=== PATIENT | female | born 1985 | race Caucasian/White ===

== ENCOUNTER 2017-08-20 21:18 | Inpatient (IN) | payer MEDICAID ==
[~2017-08-20] VITALS: Ht 170.2 cm; Wt 68.0 kg
[~2017-08-20 21:18] MED LIST: DIPH25CA83 PO; OXYC-150 PO; VALA10002 PO
[2017-08-20] MEDS ORDERED: acetaminophen 325mg tablet PO ONE (21:30)
[2017-08-20] MEDS ORDERED: acetaminophen 325mg tablet PO STA (21:48)
[2017-08-20] MEDS ORDERED: normal saline 1000ML IV soln IV ONE (21:50)
[2017-08-20] MEDS ORDERED: CefTRIAXone 2gm/D5W 50ml ADVTG 50 ML IV ONE (21:50)
[2017-08-20 22:00] LABS: CLARITY,URINE Cloudy (Clear); COLOR,URINE Yellow (Yellow); GLUCOSE, URINE Negative (Neg); KETONES,URINE Negative (Neg); LEUKOCYTE ESTERASE ,URINE Large (Neg); NITRITES, URINE Positive (Neg); OCCULT BLOOD,URINE Small (Neg); PH,URINE 6.5 (4.8-8.0); PROTEIN,URINE 30 mg/dl (Neg)
[2017-08-20 22:01] LABS: URINE HCG NEGATIVE (NEG)
[2017-08-20 22:08] LABS: BASOPHILS % (AUTO) 0 % (0-1); EOSINOPHILS % (AUTO) 0.2 % (0-6); HEMATOCRIT 45.7 % (35.0-45.0); HEMOGLOBIN 15.1 g/dl (12.0-16.0); LYMPHOCYTES # (AUTO) 1.5 X10'3 (1.1-4.8); LYMPHOCYTES % (AUTO) 10.8 % (21-51); MEAN CORPUSCULAR HEMOGLOBIN 28.8 PG (27.0-31.0); MEAN CORPUSCULAR HGB CONC 33.1 % (33.0-36.5); MEAN CORPUSCULAR VOLUME 87.1 FL (78-98); MEAN PLATELET VOLUME 9.4 FL (7.4-10.4); MONOCYTES # (AUTO) 0.8 X10'3 (0-0.9); MONOCYTES % (AUTO) 5.5 % (2-12); NEUTROPHILS % (AUTO) 83.5 % (42-75); PLATELET COUNT 203 X10'3 (140-440); RED BLOOD COUNT 5.25 X10'6 (4.20-5.60); RED CELL DISTRIBUTION WIDTH 16.9 % (11.5-14.5); WHITE BLOOD COUNT 14.3 X10'3 (4.5-11.0)
[2017-08-20] MEDS ORDERED: ketorolac trometh. 30mg/ml inj. IV ONE (22:10)
[2017-08-20 22:14] LABS: UA COLLECTION TYPE CLN CATCH MIDSTREAM
[2017-08-20 22:20] LABS: INR 0.9 INR; PARTIAL THROMBOPLASTIN TIME 27 SECONDS (22-32); PROTHROMBIN TIME 9.8 SECONDS (9.0-12.0)
[2017-08-20 22:23] LABS: ALANINE AMINOTRANSFERASE 917 U/L (12-78); ALBUMIN 3.9 G/DL (3.4-5.0); ALBUMIN/GLOBULIN RATIO 0.9 (1.1-1.5); ALKALINE PHOSPHATASE 252 IU/L (46-116); ANION GAP 7 (8-16); ASPARTATE AMINO TRANSFERASE 38 U/L (10-37); BILIRUBIN,TOTAL 0.7 MG/DL (0.1-1.0); BLOOD UREA NITROGEN 7 MG/DL (7-18); BUN/CREATININE RATIO 8.6 (6.6-38.0); CALCIUM 8.9 MG/DL (8.5-10.1); CHLORIDE 99 MMOL/L (99-107); CREATININE 0.81 MG/DL (0.40-0.90); GLUCOSE 104 MG/DL (70-104); POTASSIUM 3.7 MMOL/L (3.5-5.1); SODIUM 135 MMOL/L (135-145); TOTAL CARBON DIOXIDE 28.6 MMOL/L (24-32); TOTAL PROTEIN 8.1 G/DL (6.4-8.2); eGFR 82 ML/MIN
[2017-08-20 22:23] LABS: BACTERIA,URINE 2+ /HPF (Neg); SQUAMOUS EPITHELIAL CELL,UR MODERATE /LPF (FEW); WBC,URINE TNTC /HPF (0-4)
[2017-08-20 22:24] LABS: MUCUS STRANDS NONE SEEN /LPF (Neg)
[2017-08-21] MEDS ORDERED: NO HOME MEDS (00:35)
[2017-08-21] MEDS ORDERED: acetaminophen 325mg tablet PO PRN ×2 (02:40)
[2017-08-21] MEDS ORDERED: magnesium hydroxide 30ml (MOM) UD suspension PO PRN (02:40)
[2017-08-21] MEDS ORDERED: mag hydrox/Alum hydrox/simeth 30ml oral suspension PO PRN (02:40)
[2017-08-21] MEDS ORDERED: ondansetron/PF 4mg/2ml inj IV PRN (02:40)
[2017-08-21] MEDS: normal saline 1000ml 1,000 ML IV SCH ×2 (04:11→13:22)
[2017-08-21] MEDS ORDERED: lactobacillus rhamnosus 10,000 MMU CELLS/CAPSULE PO SCH (07:30)
[2017-08-21] MEDS ORDERED: LACTOBACILLUS RHAMNOSUS GG 15 billion unit sprinkle caps PO ONE (07:40)
[2017-08-21 13:47] VITALS: BP 121/81
[2017-08-21 14:07] VITALS: BP 121/81
[2017-08-21] MEDS ORDERED: cyclobenzaprine 10mg tablet PO PRN (14:40)
[2017-08-21] MEDS ORDERED: LORazepam 2 mg/ml vial IV PRN (14:40)
[2017-08-21] MEDS ORDERED: HYDROcodone/acetaminophen 5mg/325mg tablet PO PRN (14:40)
[2017-08-21] MEDS ORDERED: ketorolac trometh. 30mg/ml inj. IM PRN (14:40)
[2017-08-21] MEDS ORDERED: metoprolol tartrate 1mg/ml inj IV ONE (14:45)
[2017-08-21] MEDS ORDERED: metoprolol tartrate 12.5mg (1/2 tablet) PO ONE (14:49)
[2017-08-21] MEDS: acetaminophen 325mg tablet PO PRN (15:10)
[2017-08-21 16:24] LABS: HIV ANTIBODY 1&2 RAPID NON-REACTIVE (Neg)
[2017-08-21] MEDS: docusate sodium 100mg/10ml UD cup PO SCH (19:14)
[2017-08-21] MEDS: ketorolac trometh. 30mg/ml inj. IV SCH (19:14)
[2017-08-21 19:35] VITALS: BP 117/81
[2017-08-21 20:17] LABS: URINE AMPHETAMINE SCREEN POSITIVE (Neg); URINE BARBITUATE SCREEN NEGATIVE (Neg); URINE BENZODIAZEPINES SCREEN NEGATIVE (Neg); URINE CANNABINOID SCREEN POSITIVE (Neg); URINE COCAINE SCREEN NEGATIVE (Neg); URINE METHADONE SCREEN NEGATIVE (Neg); URINE OPIATE SCREEN POSITIVE (Neg); URINE PHENCYCLIDINE SCREEN NEGATIVE (Neg)
[2017-08-21] MEDS: Melatonin 3mg tablet PO SCH (20:38)
[2017-08-21] MEDS ORDERED: CefTRIAXone 2gm/D5W 50ml ADVTG 50 ML IV SCH (21:00)
[2017-08-22] VITALS: BP 112/66
[2017-08-22] MEDS: normal saline 1000ml 1,000 ML IV SCH ×3 (00:06→21:58)
[2017-08-22] MEDS: ketorolac trometh. 30mg/ml inj. IV SCH ×2 (01:48→08:00)
[2017-08-22 05:15] LABS: BASOPHILS # (AUTO) 0.1 X10'3 (0-0.2); BASOPHILS % (AUTO) 1.1 % (0-1); EOSINOPHILS # (AUTO) 0.3 X10'3 (0-0.9); EOSINOPHILS % (AUTO) 2.4 % (0-6); HEMATOCRIT 37.4 % (35.0-45.0); HEMOGLOBIN 12.3 g/dl (12.0-16.0); LYMPHOCYTES # (AUTO) 1.3 X10'3 (1.1-4.8); MEAN CORPUSCULAR HEMOGLOBIN 28.9 PG (27.0-31.0); MEAN CORPUSCULAR HGB CONC 32.9 % (33.0-36.5); MEAN CORPUSCULAR VOLUME 87.6 FL (78-98); MEAN PLATELET VOLUME 9.8 FL (7.4-10.4); MONOCYTES # (AUTO) 0.9 X10'3 (0-0.9); MONOCYTES % (AUTO) 8.9 % (2-12); NEUTROPHILS % (AUTO) 75.6 % (42-75); PLATELET COUNT 173 X10'3 (140-440); RED BLOOD COUNT 4.28 X10'6 (4.20-5.60); RED CELL DISTRIBUTION WIDTH 17.1 % (11.5-14.5); WHITE BLOOD COUNT 10.6 X10'3 (4.5-11.0)
[2017-08-22 05:49] LABS: ALANINE AMINOTRANSFERASE 421 U/L (12-78); ALBUMIN 2.5 G/DL (3.4-5.0); ALBUMIN/GLOBULIN RATIO 0.6 (1.1-1.5); ALKALINE PHOSPHATASE 173 IU/L (46-116); ANION GAP 7 (8-16); ASPARTATE AMINO TRANSFERASE 18 U/L (10-37); BILIRUBIN,TOTAL 0.4 MG/DL (0.1-1.0); BLOOD UREA NITROGEN 7 MG/DL (7-18); BUN/CREATININE RATIO 9.6 (6.6-38.0); CALCIUM 8.1 MG/DL (8.5-10.1); CHLORIDE 106 MMOL/L (99-107); CREATININE 0.73 MG/DL (0.40-0.90); GLUCOSE 158 MG/DL (70-104); POTASSIUM 3.8 MMOL/L (3.5-5.1); SODIUM 137 MMOL/L (135-145); TOTAL CARBON DIOXIDE 24.1 MMOL/L (24-32); TOTAL PROTEIN 6.4 G/DL (6.4-8.2); eGFR > 90 ML/MIN
[2017-08-22 07:06] VITALS: BP 119/79
[2017-08-22] MEDS: docusate sodium 100mg/10ml UD cup PO SCH ×2 (08:00→19:00)
[2017-08-22] MEDS: LACTOBACILLUS RHAMNOSUS GG 15 billion unit sprinkle caps PO SCH (08:01)
[2017-08-22 11:25] VITALS: BP 113/70
[2017-08-22 19:00] VITALS: BP 117/69
[2017-08-22] MEDS: ketorolac trometh. 30mg/ml inj. IV PRN (19:03)
[2017-08-22] MEDS ORDERED: CefTRIAXone 2gm/NS 100ml IVPB 100 ML IV SCH (20:28)
[2017-08-22] MEDS: Melatonin 3mg tablet PO SCH (21:58)
[2017-08-22] MEDS: acetaminophen 325mg tablet PO PRN (23:43)
[2017-08-23] VITALS: BP 106/66
[2017-08-23] MEDS: ketorolac trometh. 30mg/ml inj. IV PRN (05:23)
[2017-08-23 05:41] LABS: BASOPHILS # (AUTO) 0.1 X10'3 (0-0.2); BASOPHILS % (AUTO) 0.7 % (0-1); EOSINOPHILS # (AUTO) 0.4 X10'3 (0-0.9); EOSINOPHILS % (AUTO) 5.2 % (0-6); HEMATOCRIT 36.8 % (35.0-45.0); HEMOGLOBIN 12.2 g/dl (12.0-16.0); LYMPHOCYTES # (AUTO) 2.4 X10'3 (1.1-4.8); LYMPHOCYTES % (AUTO) 34.2 % (21-51); MEAN CORPUSCULAR HEMOGLOBIN 29.2 PG (27.0-31.0); MEAN CORPUSCULAR HGB CONC 33.2 % (33.0-36.5); MEAN CORPUSCULAR VOLUME 87.8 FL (78-98); MEAN PLATELET VOLUME 9.8 FL (7.4-10.4); MONOCYTES # (AUTO) 0.8 X10'3 (0-0.9); MONOCYTES % (AUTO) 11.6 % (2-12); NEUTROPHILS # (AUTO) 3.4 X10'3 (1.8-7.7); NEUTROPHILS % (AUTO) 48.3 % (42-75); PLATELET COUNT 227 X10'3 (140-440); RED BLOOD COUNT 4.19 X10'6 (4.20-5.60); RED CELL DISTRIBUTION WIDTH 17.4 % (11.5-14.5)
[2017-08-23 05:51] LABS: ALBUMIN 2.5 G/DL (3.4-5.0); ANION GAP 7 (8-16); BLOOD UREA NITROGEN 4 MG/DL (7-18); BUN/CREATININE RATIO 5.6 (6.6-38.0); CALCIUM 8.1 MG/DL (8.5-10.1); CHLORIDE 108 MMOL/L (99-107); CREATININE 0.72 MG/DL (0.40-0.90); GLUCOSE 90 MG/DL (70-104); POTASSIUM 3.7 MMOL/L (3.5-5.1); SODIUM 142 MMOL/L (135-145); TOTAL CARBON DIOXIDE 26.6 MMOL/L (24-32); eGFR > 90 ML/MIN
[2017-08-23 07:00] VITALS: BP 128/89
[2017-08-23] MEDS: normal saline 1000ml 1,000 ML IV SCH (07:40)
[2017-08-23] MEDS: LACTOBACILLUS RHAMNOSUS GG 15 billion unit sprinkle caps PO SCH (07:40)
[2017-08-23] MEDS: docusate sodium 100mg/10ml UD cup PO SCH (08:00)
[2017-08-23] MEDS ORDERED: LEVO750T21 PO (10:19)
[2017-08-23] MEDS ORDERED: CYCL-1 PO (10:19)
[2017-08-23] MEDS ORDERED: TRAM50TA2 PO (10:19)
[2017-08-23 11:35] VITALS: BP 114/59
[2017-08-24 15:15] LABS: HBSAG SCREEN Negative (Negative); HEP A AB, IGM Negative (Negative); HEP B CORE AB, IGM Negative (Negative); HEPATITIS C ANTIBODY >11.0 s/co ratio (0.0-0.9)
== END 2017-08-23 12:57 | disposition home or self-care (01) | DRG 720 ==
LOC: ER 21:19 → ED HOLD 08-21 02:40 → SUR 3N 08-21 13:44
PROVIDERS: ADMIT Internal Medicine; ATTEND Family Medicine
DX: A41.9 Sepsis, unspecified organism (principal); K75.9 Inflammatory liver disease, unspecified; N10 Acute pyelonephritis; F15.10 Other stimulant abuse, uncomplicated; G47.00 Insomnia, unspecified; F17.200 Nicotine dependence, unspecified, uncomplicated; B17.9 Acute viral hepatitis, unspecified; F12.90 Cannabis use, unspecified, uncomplicated; Z56.0 Unemployment, unspecified; Z87.442 Personal history of urinary calculi; Z79.899 Other long term (current) drug therapy
CPT/HCPCS: 36415; 71045; 74176; 80048; 80053; 80305; 81001; 81025; 83605; 83735; 84145; 85025; 85610; 85730; 86703; 86705; 86709; 86803; 87040; 87070; 87077; 87088; 87186; 87340; 93005; 96365; 96375; 99285; A4315; A6258; J0696; J1885; J2060; J2270; J7030

== ENCOUNTER 2018-08-16 20:42 | Emergency (ER) | payer MEDICAID ==
[~2018-08-16] VITALS: Ht 167.6 cm; Wt 76.0 kg
[~2018-08-16 20:42] MED LIST changes: +CYCL-1 PO; -DIPH25CA83 PO; +NO HOME MEDS; -OXYC-150 PO; -VALA10002 PO
[2018-08-16 21:06] VITALS: BP 147/95
== END 2018-08-16 22:03 | disposition left against medical advice (07) ==
LOC: ER 20:42
DX: R21 Rash and other nonspecific skin eruption (principal); Z53.21 Procedure and treatment not carried out due to patient leaving prior to being seen by health care provider

== ENCOUNTER 2018-08-25 08:03 | Emergency (ER) | payer MEDICAID ==
[~2018-08-25] VITALS: Ht 167.6 cm; Wt 77.3 kg
[2018-08-25 08:05] VITALS: BP 126/89
== END 2018-08-25 08:27 | disposition home or self-care (01) ==
LOC: ER 08:03
DX: L30.5 Pityriasis alba (principal); F12.90 Cannabis use, unspecified, uncomplicated; F15.90 Other stimulant use, unspecified, uncomplicated; Z56.0 Unemployment, unspecified; Z87.442 Personal history of urinary calculi
CPT/HCPCS: 99281

== ENCOUNTER 2018-10-04 10:33 | Emergency (ER) | payer MEDICAID ==
[~2018-10-04] VITALS: Ht 170.2 cm; Wt 74.0 kg
[2018-10-04 10:36] VITALS: BP 129/93
[2018-10-04] MEDS ORDERED: albuterol 2.5 MG/3 ML nebule NEB ONE (11:00)
[2018-10-04] MEDS ORDERED: METH4TAB81 PO (11:01)
[2018-10-04] MEDS ORDERED: AZIT250T83 PO (11:01)
[2018-10-06] MEDS ORDERED: ALBU6.7H INH (22:47)
[2018-10-06] MEDS ORDERED: DOXY100C43 PO (22:47)
[2018-10-06] MEDS ORDERED: GUAI473S11 PO (22:47)
== END 2018-10-04 11:41 | disposition home or self-care (01) ==
LOC: ER 10:33
DX: J45.909 Unspecified asthma, uncomplicated (principal); F17.200 Nicotine dependence, unspecified, uncomplicated; F12.90 Cannabis use, unspecified, uncomplicated; F15.90 Other stimulant use, unspecified, uncomplicated; Z56.0 Unemployment, unspecified; Z79.899 Other long term (current) drug therapy
CPT/HCPCS: 94640; 94760; 99283

== ENCOUNTER 2018-10-28 00:17 | Emergency (ER) | payer MEDICAID ==
[~2018-10-28] VITALS: Ht 157.5 cm; Wt 77.1 kg
[~2018-10-28 00:17] MED LIST changes: +ALBU6.7H INH; +METH4TAB81 PO
[2018-10-28 00:19] VITALS: BP 160/97
[2018-10-28] MEDS ORDERED: dexamethasone 4mg tablet PO ONE (00:30)
[2018-10-28] MEDS ORDERED: ipratropium/albuterol 3ml nebule NEB ONE (00:30)
--- NOTE | 2018-10-28 00:52 | NUR ---
PT STATES SHE FEELS SO MUCH BETTER AFTER HER NEB. SHE IS JOKING AROUND, HER DARN LAB ATE HER INHALER!
[2018-10-28] MEDS ORDERED: ALBU18HF2 INH (01:04)
[2018-10-28] MEDS ORDERED: PRED20TA PO (01:04)
== END 2018-10-28 01:20 | disposition home or self-care (01) ==
LOC: ER 00:17
DX: J20.9 Acute bronchitis, unspecified (principal); J22 Unspecified acute lower respiratory infection; J45.909 Unspecified asthma, uncomplicated; F12.90 Cannabis use, unspecified, uncomplicated; F15.90 Other stimulant use, unspecified, uncomplicated; F17.299 Nicotine dependence, other tobacco product, with unspecified nicotine-induced disorders; Z56.0 Unemployment, unspecified; Z87.442 Personal history of urinary calculi; Z79.899 Other long term (current) drug therapy
CPT/HCPCS: 94640; 94760; 99283; 99406; J8540

== ENCOUNTER 2019-01-16 16:24 | Emergency (ER) | payer MEDICAID ==
[~2019-01-16] VITALS: Ht 167.6 cm; Wt 72.0 kg
[~2019-01-16 16:24] MED LIST changes: +ALBU18HF2 INH
[2019-01-16 16:42] VITALS: BP 130/93
[2019-01-16 17:21] LABS: URINE HCG NEGATIVE (NEG)
[2019-01-16 17:36] LABS: CLARITY,URINE SLIGHTLY CLOUDY (Clear); COLOR,URINE YELLOW (Yellow); GLUCOSE, URINE NEGATIVE (Neg); KETONES,URINE NEGATIVE (Neg); LEUKOCYTE ESTERASE ,URINE NEGATIVE (Neg); NITRITES, URINE NEGATIVE (Neg); OCCULT BLOOD,URINE NEGATIVE (Neg); PROTEIN,URINE NEGATIVE (Neg); UROBILINOGEN,URINE 0.2 E.U/dL (0.2-1.0)
[2019-01-16 17:39] LABS: UA COLLECTION TYPE VOIDED
[2019-01-16] MEDS ORDERED: penicillin G benzathine 1.2 million unit/2ml syringe IM ONE (17:40)
[2019-01-16 17:41] LABS: MUCUS STRANDS MANY /LPF (Neg); SQUAMOUS EPITHELIAL CELL,UR MANY /LPF (FEW)
[2019-01-16 17:44] LABS: BACTERIA,URINE 1+ /HPF (Neg); RBC,URINE 0-2 /HPF (0-2); WBC,URINE 0-4 /HPF (0-4)
== END 2019-01-16 18:05 | disposition home or self-care (01) ==
LOC: ER 16:24
DX: Z20.2 Contact with and (suspected) exposure to infections with a predominantly sexual mode of transmission (principal); J45.909 Unspecified asthma, uncomplicated; F12.90 Cannabis use, unspecified, uncomplicated; F15.90 Other stimulant use, unspecified, uncomplicated; F11.90 Opioid use, unspecified, uncomplicated; Z79.899 Other long term (current) drug therapy; Z56.0 Unemployment, unspecified
CPT/HCPCS: 81001; 81025; 96372; 99283; J0561

== ENCOUNTER 2019-05-20 21:14 | Emergency (ER) | payer MEDICAID, OTHER ==
[~2019-05-20] VITALS: Ht 167.6 cm; Wt 71.0 kg
[~2019-05-20 21:14] MED LIST changes: -ALBU6.7H INH; +ALBU6.7H9 INH
[2019-05-20] MEDS ORDERED: ipratropium/albuterol 3ml nebule NEB ONE (21:30)
[2019-05-20] MEDS ORDERED: ALBU18HF2 INH (22:01)
[2019-05-20] MEDS ORDERED: BECL7.3A INH (22:01)
[2019-05-20] MEDS ORDERED: AZIT250T PO (22:01)
[2019-05-20 22:15] VITALS: BP 140/76
== END 2019-05-20 22:16 | disposition home or self-care (01) ==
LOC: ER 21:15
DX: J45.901 Unspecified asthma with (acute) exacerbation (principal); F12.90 Cannabis use, unspecified, uncomplicated; F15.90 Other stimulant use, unspecified, uncomplicated; F11.90 Opioid use, unspecified, uncomplicated; Z87.442 Personal history of urinary calculi; Z56.0 Unemployment, unspecified; Z79.899 Other long term (current) drug therapy
CPT/HCPCS: 93005; 94640; 94760; 99283

== ENCOUNTER 2019-06-23 08:07 | Emergency (ER) | payer MEDICAID, OTHER ==
[~2019-06-23] VITALS: Ht 167.6 cm; Wt 70.0 kg
[~2019-06-23 08:07] MED LIST changes: +AZIT250T PO; +BECL7.3A INH
[2019-06-23] MEDS ORDERED: ipratropium/albuterol 3ml nebule NEB ONE (08:40)
[2019-06-23] MEDS ORDERED: DOXY100C43 PO (09:21)
[2019-06-23] MEDS ORDERED: PRED50TA PO (09:21)
[2019-06-23 09:37] VITALS: BP 103/70
== END 2019-06-23 09:41 | disposition home or self-care (01) ==
LOC: ER 08:07
DX: J45.901 Unspecified asthma with (acute) exacerbation (principal); F17.299 Nicotine dependence, other tobacco product, with unspecified nicotine-induced disorders; F12.90 Cannabis use, unspecified, uncomplicated; F15.90 Other stimulant use, unspecified, uncomplicated; F11.90 Opioid use, unspecified, uncomplicated; Z56.0 Unemployment, unspecified; Z87.442 Personal history of urinary calculi; Z79.899 Other long term (current) drug therapy
CPT/HCPCS: 71046; 94640; 94760; 99283; 99406

== ENCOUNTER 2019-06-29 15:52 | Emergency (ER) | payer MEDICAID, OTHER ==
[~2019-06-29] VITALS: Ht 167.6 cm; Wt 70.2 kg
[~2019-06-29 15:52] MED LIST changes: +DOXY100C43 PO; +PRED50TA PO
[2019-06-29 15:53] VITALS: BP 146/99
== END 2019-06-29 17:21 | disposition home or self-care (01) ==
LOC: ER 15:52
DX: S92.352A Displaced fracture of fifth metatarsal bone, left foot, initial encounter for closed fracture (principal); J45.909 Unspecified asthma, uncomplicated; F17.200 Nicotine dependence, unspecified, uncomplicated; F12.90 Cannabis use, unspecified, uncomplicated; F15.90 Other stimulant use, unspecified, uncomplicated; F11.90 Opioid use, unspecified, uncomplicated; Z56.0 Unemployment, unspecified; Z87.442 Personal history of urinary calculi; Z79.899 Other long term (current) drug therapy; W10.9XXA Fall (on) (from) unspecified stairs and steps, initial encounter; Y93.01 Activity, walking, marching and hiking; Y92.89 Other specified places as the place of occurrence of the external cause; Y99.9 Unspecified external cause status
CPT/HCPCS: 73630; 99284

== ENCOUNTER 2019-08-28 12:34 | Emergency (ER) | payer MEDICAID, OTHER ==
[~2019-08-28] VITALS: Ht 167.6 cm; Wt 67.7 kg
[~2019-08-28 12:34] MED LIST changes: -DOXY100C43 PO
[2019-08-28] MEDS ORDERED: ipratropium/albuterol 3ml nebule NEB ONE (12:45)
[2019-08-28] MEDS ORDERED: predniSONE 20 mg tablet PO ONE (12:45)
[2019-08-28] MEDS ORDERED: methylPREDNISolone sod succ 125mg/2ml vial IV ONE (12:45)
[2019-08-28] MEDS ORDERED: albuterol 2.5 MG/3 ML nebule CONTNEB PRN (12:45)
[2019-08-28] MEDS ORDERED: epiNEPHrine 1 mg/ml inj IM STA (12:47)
[2019-08-28] MEDS ORDERED: methylPREDNISolone sod succ 125mg/2ml vial IM ONE (12:50)
--- NOTE | 2019-08-28 12:59 | NUR ---
pt given epi sq and solumed im. 2nd page placed to RT.
[2019-08-28 13:09] LABS: BASOPHILS # (AUTO) 0.1 X10'3 (0-0.2); BASOPHILS % (AUTO) 1.1 % (0-1); EOSINOPHILS # (AUTO) 1.5 X10'3 (0-0.9); HEMATOCRIT 44.5 % (35.0-45.0); LYMPHOCYTES # (AUTO) 3.2 X10'3 (1.1-4.8); LYMPHOCYTES % (AUTO) 35.9 % (21-51); MEAN CORPUSCULAR HEMOGLOBIN 28.2 PG (27.0-31.0); MEAN CORPUSCULAR HGB CONC 33.6 g/dL (33.0-36.5); MEAN CORPUSCULAR VOLUME 83.9 FL (78-98); MEAN PLATELET VOLUME 8.4 FL (7.4-10.4); MONOCYTES # (AUTO) 0.5 X10'3 (0-0.9); NEUTROPHILS # (AUTO) 3.6 X10'3 (1.8-7.7); PLATELET COUNT 276 X10'3 (140-440); RED CELL DISTRIBUTION WIDTH 14.7 % (11.5-14.5)
--- NOTE | 2019-08-28 13:17 | NUR ---
RT HERE TO GIVE PT CONT NEB. RT BUSY WITH CRITICAL PTS IN ICU WHEN PAGED FIRST TIME, CALLED ER AND INFORMED THEM WE WOULD BE DOWN SOON WE WERE DONE.. RECEIVED ANOTHER PAGE AGAIN. SPOKE TO OPERATIONS INTELLIGENCE SUPERINTENDENT VIVI AND MADE HER AWARE OF SITUATION. ALSO SPOKE TO DR GARDUNO.. PT CURRENTLY ON CONT NEB. HR 95, SPO2 100%, RR 22.
[2019-08-28 13:26] LABS: ALANINE AMINOTRANSFERASE 17 U/L (12-78); ALBUMIN 3.7 G/DL (3.4-5.0); ALBUMIN/GLOBULIN RATIO 1.1 (1.1-1.5); ALKALINE PHOSPHATASE 78 IU/L (46-116); ANION GAP 7 (8-16); ASPARTATE AMINO TRANSFERASE 8 U/L (10-37); BILIRUBIN,TOTAL 0.3 MG/DL (0.1-1.0); BLOOD UREA NITROGEN 11 MG/DL (7-18); BUN/CREATININE RATIO 13.6 (6.6-38.0); CALCIUM 8.5 MG/DL (8.5-10.1); CHLORIDE 105 MMOL/L (99-107); CREATININE 0.81 MG/DL (0.40-0.90); GLUCOSE 93 MG/DL (70-104); POTASSIUM 4.4 MMOL/L (3.5-5.1); SODIUM 141 MMOL/L (135-145); TOTAL CARBON DIOXIDE 29.2 MMOL/L (24-32); TOTAL PROTEIN 7.1 G/DL (6.4-8.2); eGFR 81 ML/MIN
[2019-08-28] MEDS ORDERED: PRED20TA PO (14:12)
[2019-08-28] MEDS ORDERED: ALBU8.5H8 INH (14:12)
[2019-08-28 14:18] VITALS: BP 124/88
== END 2019-08-28 14:20 | disposition home or self-care (01) ==
LOC: ER 12:35
DX: J45.901 Unspecified asthma with (acute) exacerbation (principal); F17.200 Nicotine dependence, unspecified, uncomplicated; F15.90 Other stimulant use, unspecified, uncomplicated; F11.90 Opioid use, unspecified, uncomplicated; F12.90 Cannabis use, unspecified, uncomplicated; Z56.0 Unemployment, unspecified; Z79.899 Other long term (current) drug therapy
CPT/HCPCS: 36415; 71045; 80053; 85025; 94644; 96372; 99285; J0171; J2930; 94760

== ENCOUNTER 2019-09-14 16:06 | Inpatient (IN) | payer MEDICAID ==
[~2019-09-14] VITALS: Ht 167.6 cm; Wt 68.0 kg
--- NOTE | 2019-09-14 06:15 | NUR ---
Received report from PRIYANK Woo.
[~2019-09-14 16:06] MED LIST changes: +ALBU8.5H8 INH
[2019-09-14] MEDS ORDERED: diphenhydrAMINE 50 mg/ml inj IM ONE (16:20)
[2019-09-14] MEDS ORDERED: morphine 4 MG/ML inj SYRINge IM ONE (16:20)
[2019-09-14] MEDS ORDERED: LORazepam 1 MG tablet PO ONE (16:30)
[2019-09-14] MEDS ORDERED: fentaNYL/PF 50MCG/1 ML 2ML syringe IV ONE ×2 (16:35→18:55)
[2019-09-14] MEDS ORDERED: ketamine 10mg/ml 20ml inj IV ONE (17:10)
[2019-09-14] MEDS ORDERED: ketamine 50 mg/ml 10ml vial IV ONE (17:15)
[2019-09-14] MEDS ORDERED: KETAMINE IV ONE (17:31)
[2019-09-14] MEDS ORDERED: NORMAL SALINE IV ONE (17:31)
--- NOTE | 2019-09-14 17:50 | NUR ---
PT. IS TYPING ON HER CELL PHONE SHOWING NO SIGN OR INDICATION THAT SHE IS IN PAIN. I TALKED TO TOO RAJAN WHO STATED WE COULD HOLD THE KETAMINE DRIP.
--- NOTE | 2019-09-14 18:10 | NUR ---
PT. REFUSED TO GO TO CT. WHEN THEY CAME INTO THE ROOM. PT. STATED " I AM NOT GOING UNLESS I GET PAIN MEDS THAT KNOCKS ME OUT" INFORMED. NEW ORDER TO GIVE THE KETAMIE DRIP. NURSE NETO INFORMED
--- NOTE | 2019-09-14 19:32 | NUR ---
Pt was medicated for pain and was able to go out to CT for scan. Pt tolerated well.
--- NOTE | 2019-09-14 20:00 | NUR ---
Pt unable to tolerate placement of knee immobilizer.
[2019-09-14] MEDS ORDERED: CLIN300C71 PO (21:28)
[2019-09-14] MEDS ORDERED: BUPR1FIL3 PO (21:28)
[2019-09-14] MEDS ORDERED: potassium CL 10mEq/100ml bag 100 ML IV PRN ×2 (22:40)
[2019-09-14] MEDS ORDERED: potassium Cl 20 mEq SR tablet PO PRN ×2 (22:40)
[2019-09-14] MEDS ORDERED: acetaminophen 325mg tablet PO PRN (22:40)
[2019-09-14] MEDS ORDERED: ondansetron/PF 4mg/2ml inj IV PRN (22:40)
[2019-09-14] MEDS ORDERED: magnesium Cl slow-release 64mg tablet PO PRN (22:40)
[2019-09-14] MEDS ORDERED: magnesium 2GM in 50ml NS 50 ML IV PRN (22:40)
[2019-09-14] MEDS ORDERED: magnesium 4gm in 100ml NS 100 ML IV PRN (22:40)
[2019-09-14 23:25] VITALS: BP 120/85
[2019-09-14] MEDS: morphine 2 MG/ML inj. syringe IV PRN (23:30)
[2019-09-14] MEDS: normal saline 1000ml 1,000 ML IV SCH (23:32)
[2019-09-14] MEDS ORDERED: ALBU6.7H9 INH (23:34)
[2019-09-15] VITALS (10 sets, daily range): BP systolic 118–168; BP diastolic 72–90
[2019-09-15] MEDS ORDERED: HYDROmorphone 1 mg/ml syringe IV ONE (00:25)
[2019-09-15] MEDS: HYDROcodone/acetaminophen 5mg/325mg tablet PO PRN ×4 (02:08→19:34)
[2019-09-15] MEDS: morphine 2 MG/ML inj. syringe IV PRN ×2 (03:26→08:12)
--- NOTE | 2019-09-15 06:00 | NUR ---
Patient in room ORTHO 4021. I have received report from RAIN YOST and had the opportunity to ask questions and assume patient care.
--- NOTE | 2019-09-15 06:06 | NUR ---
Patient report given, questions answered and plan of care reviewed with PRIYANK Mijares.
[2019-09-15 06:17] LABS: BASOPHILS # (AUTO) 0.1 X10'3 (0-0.2); BASOPHILS % (AUTO) 0.6 % (0-1); EOSINOPHILS # (AUTO) 0.3 X10'3 (0-0.9); EOSINOPHILS % (AUTO) 2.5 % (0-6); HEMATOCRIT 37.2 % (35.0-45.0); HEMOGLOBIN 12.4 g/dl (12.0-16.0); LYMPHOCYTES # (AUTO) 2.5 X10'3 (1.1-4.8); LYMPHOCYTES % (AUTO) 22.5 % (21-51); MEAN CORPUSCULAR HEMOGLOBIN 28.1 PG (27.0-31.0); MEAN CORPUSCULAR HGB CONC 33.4 g/dL (33.0-36.5); MEAN CORPUSCULAR VOLUME 84.1 FL (78-98); MEAN PLATELET VOLUME 8.4 FL (7.4-10.4); MONOCYTES % (AUTO) 8.6 % (2-12); NEUTROPHILS # (AUTO) 7.3 X10'3 (1.8-7.7); NEUTROPHILS % (AUTO) 65.8 % (42-75); PLATELET COUNT 223 X10'3 (140-440); RED BLOOD COUNT 4.42 X10'6 (4.20-5.60); WHITE BLOOD COUNT 11.1 X10'3 (4.5-11.0)
[2019-09-15 06:40] LABS: ALBUMIN 3.6 G/DL (3.4-5.0); ANION GAP 6 (8-16); BLOOD UREA NITROGEN 11 MG/DL (7-18); BUN/CREATININE RATIO 15.7 (6.6-38.0); CALCIUM 8.7 MG/DL (8.5-10.1); CHLORIDE 108 MMOL/L (99-107); GLUCOSE 107 MG/DL (70-104); MAGNESIUM 1.8 MG/DL (1.5-2.4); POTASSIUM 3.8 MMOL/L (3.5-5.1); SODIUM 140 MMOL/L (135-145); TOTAL CARBON DIOXIDE 26.1 MMOL/L (24-32); eGFR > 90 ML/MIN
[2019-09-15] MEDS: K and/or MAG REPLACEMENT MC SCH ×2 (08:00→08:18)
[2019-09-15] MEDS: nicotine 14mg patch - 24hr TD SCH (08:12)
[2019-09-15] MEDS ORDERED: famotidine/PF 10 mg/ml inj IV PRN (08:40)
[2019-09-15] MEDS: HYDROmorphone 1 mg/ml syringe IV PRN ×4 (09:45→22:05)
[2019-09-15] MEDS ORDERED: albuterol 2.5 MG/3 ML nebule NEB PRN (12:05)
[2019-09-15] MEDS ORDERED: ceFAZolin 1GM/D5W- ADD-VANTAGE 50 ML IV ONE (13:00)
--- NOTE | 2019-09-15 15:11 | NUR ---
DOWN TO THE OR, REPORT CALLED PAOLA OSEI RN.
[2019-09-15] MEDS ORDERED: ceFAZolin 1000mg inj ONE (15:43)
[2019-09-15] MEDS ORDERED: diphenhydrAMINE 50 mg/ml inj ONE (15:55)
[2019-09-15] MEDS ORDERED: dexamethasone sod phosphate 4mg/ml inj. ONE (16:06)
[2019-09-15] MEDS ORDERED: albuterol 2.5 MG/3 ML nebule NEB ONE (16:10)
[2019-09-15] MEDS ORDERED: dexamethasone sod phosphate 10mg/ml inj IV STA (16:17)
[2019-09-15] MEDS ORDERED: ringers solution, lacted 1,000 ML IV ONE (16:17)
[2019-09-15] MEDS ORDERED: diphenhydrAMINE 50 mg/ml inj IM ONE (16:20)
--- NOTE | 2019-09-15 16:30 | NUR ---
PT FOUND IN DISTRESS ON SIMPLE MASK. RT CALED FOR BREATHING TREATMENT FOR ADVERSE REACTION TO MEDICATION. NO WHEEZES OR CRACKLES NOTES. NO STRIDOR. PT. TOOK TREATMENT FOR 1 MINUTE BEFORE THEY REFUSED TO CONTINUE. SWELLING OF THE LIPS AND TOUNGE NOTED. PT ON ROOM AIR POST TREAMENT SATURATING IN THE HIGH 90'S. RACEMIC EPINEPHRINE SUGGESTED BUT DECLINED. Addendum: 09/15/19 at 1633 by Maxx Melendez RT Amended: Links added.
--- NOTE | 2019-09-15 17:00 | NUR ---
REPORT CALLED TO ANDREW RN IN ICU. PATIENT BELONGINGS COLLECTED AND TRANSFERRED TO ROOM.
--- NOTE | 2019-09-15 17:30 | NUR ---
Pt arrived from Recovery Room, into 2009. Placed on monitor. IVF running. PT A&O x4. Painful.
--- NOTE | 2019-09-15 18:15 | NUR ---
Patient in room CICU 2009. I have received report from Nancy, and had the opportunity to ask questions and assume patient care.
[2019-09-15] MEDS: diphenhydrAMINE 50 mg/ml inj IV SCH (19:33)
[2019-09-15] MEDS: dexamethasone 4mg/ml inj IV SCH (19:33)
[2019-09-15] MEDS ORDERED: buprenorphine/naloxone 8MG-2MG SUBlingual film SL SCH (20:00)
[2019-09-16] VITALS (26 sets, daily range): BP systolic 93–140; BP diastolic 47–88
[2019-09-16] MEDS: diphenhydrAMINE 50 mg/ml inj IV SCH ×2 (02:06→07:57)
[2019-09-16] MEDS: dexamethasone 4mg/ml inj IV SCH ×2 (02:06→08:00)
[2019-09-16] MEDS: HYDROmorphone 1 mg/ml syringe IV PRN ×3 (03:00→13:05)
[2019-09-16 04:52] LABS: BASOPHILS % (AUTO) 0.2 % (0-1); EOSINOPHILS % (AUTO) 0 % (0-6); HEMATOCRIT 36.7 % (35.0-45.0); HEMOGLOBIN 12.4 g/dl (12.0-16.0); LYMPHOCYTES # (AUTO) 0.5 X10'3 (1.1-4.8); LYMPHOCYTES % (AUTO) 6.8 % (21-51); MEAN CORPUSCULAR HEMOGLOBIN 28.6 PG (27.0-31.0); MEAN CORPUSCULAR HGB CONC 33.7 g/dL (33.0-36.5); MEAN CORPUSCULAR VOLUME 84.9 FL (78-98); MEAN PLATELET VOLUME 8.5 FL (7.4-10.4); MONOCYTES # (AUTO) 0.1 X10'3 (0-0.9); MONOCYTES % (AUTO) 1.6 % (2-12); NEUTROPHILS # (AUTO) 7.2 X10'3 (1.8-7.7); NEUTROPHILS % (AUTO) 91.4 % (42-75); PLATELET COUNT 260 X10'3 (140-440); RED BLOOD COUNT 4.32 X10'6 (4.20-5.60); RED CELL DISTRIBUTION WIDTH 14.9 % (11.5-14.5); WHITE BLOOD COUNT 7.9 X10'3 (4.5-11.0)
[2019-09-16 05:11] LABS: ALBUMIN 3.2 G/DL (3.4-5.0); ANION GAP 5 (8-16); BLOOD UREA NITROGEN 8 MG/DL (7-18); BUN/CREATININE RATIO 12.3 (6.6-38.0); CALCIUM 8.6 MG/DL (8.5-10.1); CHLORIDE 106 MMOL/L (99-107); CREATININE 0.65 MG/DL (0.40-0.90); GLUCOSE 131 MG/DL (70-104); MAGNESIUM 1.6 MG/DL (1.5-2.4); POTASSIUM 4.3 MMOL/L (3.5-5.1); SODIUM 137 MMOL/L (135-145); TOTAL CARBON DIOXIDE 25.9 MMOL/L (24-32); eGFR > 90 ML/MIN
--- NOTE | 2019-09-16 05:52 | NUR ---
Patient is resting well. Pain management is working very well. NPO since midnight. Scheduled for ORIF or left tibia in this afternoon (09/16/19).
--- NOTE | 2019-09-16 06:30 | NUR ---
Problems reprioritized. Patient report given to KarinaRN, questions answered & plan of care reviewed with .
--- NOTE | 2019-09-16 06:56 | NUR ---
Patient in room CICU 2009. I have received report from PRIYANK Jackson and had the opportunity to ask questions and assume patient care.
[2019-09-16] MEDS: nicotine 14mg patch - 24hr TD SCH (07:58)
[2019-09-16] MEDS ORDERED: CefTRIAXone 2gm/D5W 50ml 50 ML IV SCH (08:00)
[2019-09-16] MEDS: K and/or MAG REPLACEMENT MC SCH ×2 (08:49→20:00)
--- NOTE | 2019-09-16 11:45 | NUR ---
Report called to receiving nurse PRIYANK Rios. Transferred via bed with all belongings. Special Issues communicated to receiving nurse.
--- NOTE | 2019-09-16 12:15 | NUR ---
Patient in room ORTHO 4021. I have received report from NIKOLAY YOST and had the opportunity to ask questions and assume patient care.
--- NOTE | 2019-09-16 12:22 | NUR ---
PAGER ID: [phone] MESSAGE: RICKY [phone] RE: TAVO [id number] SHE IS BACK FROM ICU, NOT SURE IF YOU ARE RESUMING CARE.
[2019-09-16] MEDS ORDERED: ceFAZolin 1000mg inj ONE ×2 (15:53→16:35)
[2019-09-16] MEDS ORDERED: cloNIDine hcl/PF 100mcg/ml inj ONE (15:54)
--- NOTE | 2019-09-16 15:54 | NUR ---
DOWN TO THE OR
[2019-09-16] MEDS ORDERED: sevoflurane 250ml liquid IH ONE (15:56)
[2019-09-16] MEDS: ceFAZolin 1GM/D5W- ADD-VANTAGE 50 ML IV SCH ×2 (16:00→23:40)
[2019-09-16] MEDS ORDERED: fentaNYL/PF 50MCG/1 ML 2ML syringe ONE (16:05)
[2019-09-16] MEDS ORDERED: midazolam 2 mg/2 ml injection ONE (16:06)
[2019-09-16] MEDS ORDERED: acetaminophen 1,000mg/100ml IV 100 ML IV ONE (16:35)
[2019-09-16] MEDS ORDERED: ROPIVAcaine 0.5% (5mg/ml) 30ml vial ONE (16:35)
[2019-09-16] MEDS ORDERED: ondansetron/PF 4mg/2ml inj ONE (16:36)
[2019-09-16] MEDS ORDERED: propofol inj 20 ML IV ONE (16:36)
[2019-09-16] MEDS ORDERED: LIDOcaine 1%/PF 5ML 10 MG/ML VIAL ONE (16:36)
[2019-09-16] MEDS ORDERED: LIDOcaine 2% (20mg/ml) 5ml vial ONE (16:36)
[2019-09-16] MEDS ORDERED: dexamethasone sod phosphate 4mg/ml inj. ONE (16:36)
[2019-09-16] MEDS ORDERED: morphine 10mg/ml inj. ONE ×2 (16:46→17:13)
--- NOTE | 2019-09-16 17:30 | NUR ---
Received from OR via ORTHO BED WITH NDHORACE , accompanied by Anesthesiologist ROBERT and report given by Anesthesiolgist. PATIENT WITH 20G PIV IN RIGHT AC RUNNING LR AT 100. LEFT KNEE WITH CHRIS UNLOCKED AND DRESSING THAT IS CDI.+ DORSALIS PEDIS. + CAP REFILL TO LEFT FOOT. 10L MASK ON WITH 100% SATURATIONS. Addendum: 09/16/19 at 1742 by Jonas Jean RN, RN Amended: Links added.
[2019-09-16] MEDS ORDERED: ringers solution, lacted 1,000 ML IV SCH (17:34)
[2019-09-16] MEDS ORDERED: ondansetron/PF 4mg/2ml inj IV PRN (17:35)
[2019-09-16] MEDS ORDERED: ketorolac trometh. 30mg/ml inj. IV ONE (17:35)
[2019-09-16] MEDS ORDERED: meperidine/PF 25mg/ml syringe IV PRN ×2 (17:35)
[2019-09-16] MEDS ORDERED: morphine 4 MG/ML inj SYRINge IV PRN (17:35)
[2019-09-16] MEDS ORDERED: proCHLORperazine 10 MG/2 ml inj IV PRN (17:35)
[2019-09-16] MEDS ORDERED: meperidine/PF 25mg/ml syringe ONE (17:36)
[2019-09-16] MEDS: morphine 4 MG/ML inj SYRINge IV PRN ×2 (17:50→18:07)
[2019-09-16] MEDS: meperidine/PF 25mg/ml syringe IV PRN ×2 (17:59→18:06)
--- NOTE | 2019-09-16 18:10 | NUR ---
ALL CRITERIA FOR TRANSFER TO THE FLOOR HAS BEEN ACHIEVED. VSS. BED LOW, CALL LIGHT AND VS. SET IN PLACE. RN PRESENT TO ACCEPT CARE. PATIENT RESTING COMFORTABLY IN BED. BELONGINGS SENT WITH PATIENT. DRESSINGS CDI. PRIYANK MONTEZ PRESENT TO ACCEPT CARE. Addendum: 09/16/19 at 1819 by Jonas Valverde - PRIYANK YOST Amended: Links added.
--- NOTE | 2019-09-16 18:20 | NUR ---
ASSUMED CARE, RECEIVED REPORT FROM FARNAZ YOST, POST OP VITALS STARTED, FAMILY AT BEDSIDE. WILL CONTINUE TO MONITOR.
--- NOTE | 2019-09-16 18:21 | NUR ---
Patient in room ORTHO 4021. I have received report from PRIYANK Mijares and had the opportunity to ask questions and assume patient care. Addendum: 09/16/19 at 1838 by Diane Peterson RN Report given to PRIYANK Fontanez from PRIYANK Mijares
--- NOTE | 2019-09-16 18:35 | NUR ---
Problems reprioritized. Patient report given, questions answered & plan of care reviewed with MARGIE YOST.
[2019-09-16] MEDS: normal saline 1000ml 1,000 ML IV SCH (19:13)
[2019-09-17] MEDS: HYDROmorphone 1 mg/ml syringe IV PRN ×2 (00:42→05:28)
[2019-09-17 02:00] VITALS: BP 92/50
[2019-09-17 06:00] VITALS: BP 99/56
--- NOTE | 2019-09-17 06:34 | NUR ---
Problems reprioritized. Patient report given, questions answered & plan of care reviewed with Blanca YOST.
[2019-09-17 06:45] LABS: BASOPHILS % (AUTO) 0.3 % (0-1); EOSINOPHILS % (AUTO) 0 % (0-6); HEMATOCRIT 33.6 % (35.0-45.0); HEMOGLOBIN 11.2 g/dl (12.0-16.0); LYMPHOCYTES # (AUTO) 1.6 X10'3 (1.1-4.8); LYMPHOCYTES % (AUTO) 12.4 % (21-51); MEAN CORPUSCULAR HEMOGLOBIN 28.1 PG (27.0-31.0); MEAN CORPUSCULAR HGB CONC 33.2 g/dL (33.0-36.5); MEAN CORPUSCULAR VOLUME 84.5 FL (78-98); MEAN PLATELET VOLUME 8.5 FL (7.4-10.4); MONOCYTES # (AUTO) 0.7 X10'3 (0-0.9); MONOCYTES % (AUTO) 5.6 % (2-12); NEUTROPHILS # (AUTO) 10.5 X10'3 (1.8-7.7); NEUTROPHILS % (AUTO) 81.7 % (42-75); PLATELET COUNT 272 X10'3 (140-440); RED BLOOD COUNT 3.97 X10'6 (4.20-5.60); RED CELL DISTRIBUTION WIDTH 15.3 % (11.5-14.5); WHITE BLOOD COUNT 12.9 X10'3 (4.5-11.0)
[2019-09-17 07:07] LABS: ALBUMIN 2.9 G/DL (3.4-5.0); ANION GAP 5 (8-16); BLOOD UREA NITROGEN 16 MG/DL (7-18); BUN/CREATININE RATIO 15.8 (6.6-38.0); CALCIUM 8.3 MG/DL (8.5-10.1); CHLORIDE 107 MMOL/L (99-107); CREATININE 1.01 MG/DL (0.40-0.90); GLUCOSE 116 MG/DL (70-104); MAGNESIUM 1.7 MG/DL (1.5-2.4); POTASSIUM 3.7 MMOL/L (3.5-5.1); SODIUM 142 MMOL/L (135-145); TOTAL CARBON DIOXIDE 29.6 MMOL/L (24-32); eGFR 63 ML/MIN
[2019-09-17] MEDS: K and/or MAG REPLACEMENT MC SCH ×2 (08:00→20:00)
[2019-09-17] MEDS: nicotine 14mg patch - 24hr TD SCH (09:41)
[2019-09-17] MEDS: HYDROcodone/acetaminophen 5mg/325mg tablet PO PRN (09:47)
[2019-09-17 10:00] VITALS: BP 97/52
[2019-09-17] MEDS ORDERED: magnesium hydroxide 30ml (MOM) UD suspension PO PRN (12:15)
[2019-09-17] MEDS: HYDROcodone/acetaminophen 10/325mg tab PO SCH ×3 (13:32→21:28)
[2019-09-17 18:00] VITALS: BP 153/76
[2019-09-17] MEDS: docusate sod 100mg capsule PO SCH (20:00)
[2019-09-17] MEDS: buprenorphine/naloxone 8MG-2MG SUBlingual film SL SCH (20:00)
[2019-09-17 22:00] VITALS: BP 113/81
[2019-09-18] MEDS: HYDROcodone/acetaminophen 10/325mg tab PO SCH ×5 (03:09→16:00)
[2019-09-18 06:00] VITALS: BP 105/69
[2019-09-18 06:31] LABS: ALBUMIN 2.6 G/DL (3.4-5.0); ANION GAP 6 (8-16); BLOOD UREA NITROGEN 9 MG/DL (7-18); BUN/CREATININE RATIO 14.1 (6.6-38.0); CALCIUM 8.1 MG/DL (8.5-10.1); CHLORIDE 108 MMOL/L (99-107); CREATININE 0.64 MG/DL (0.40-0.90); GLUCOSE 88 MG/DL (70-104); MAGNESIUM 1.6 MG/DL (1.5-2.4); POTASSIUM 3.5 MMOL/L (3.5-5.1); SODIUM 143 MMOL/L (135-145); eGFR > 90 ML/MIN
[2019-09-18 06:45] LABS: BASOPHILS # (AUTO) 0.1 X10'3 (0-0.2); EOSINOPHILS # (AUTO) 0.1 X10'3 (0-0.9); EOSINOPHILS % (AUTO) 1.9 % (0-6); HEMATOCRIT 30.3 % (35.0-45.0); HEMOGLOBIN 10.3 g/dl (12.0-16.0); LYMPHOCYTES % (AUTO) 44.2 % (21-51); MEAN CORPUSCULAR HEMOGLOBIN 29.1 PG (27.0-31.0); MEAN CORPUSCULAR HGB CONC 34.2 g/dL (33.0-36.5); MEAN CORPUSCULAR VOLUME 85.1 FL (78-98); MEAN PLATELET VOLUME 8.3 FL (7.4-10.4); MONOCYTES # (AUTO) 0.6 X10'3 (0-0.9); MONOCYTES % (AUTO) 9.4 % (2-12); NEUTROPHILS # (AUTO) 2.9 X10'3 (1.8-7.7); NEUTROPHILS % (AUTO) 43.5 % (42-75); PLATELET COUNT 236 X10'3 (140-440); RED BLOOD COUNT 3.56 X10'6 (4.20-5.60); WHITE BLOOD COUNT 6.7 X10'3 (4.5-11.0)
[2019-09-18] MEDS: HYDROmorphone 1 mg/ml syringe IV PRN (06:51)
[2019-09-18] MEDS: docusate sod 100mg capsule PO SCH (08:00)
[2019-09-18] MEDS: K and/or MAG REPLACEMENT MC SCH (08:00)
[2019-09-18] MEDS: buprenorphine/naloxone 8MG-2MG SUBlingual film SL SCH (08:00)
[2019-09-18] MEDS: nicotine 14mg patch - 24hr TD SCH (08:50)
[2019-09-18] MEDS ORDERED: HYDR-4353 PO (09:52)
[2019-09-18] MEDS ORDERED: NICO-631 TD (09:52)
[2019-09-18 09:55] VITALS: BP 189/90
--- NOTE | 2019-09-18 10:15 | NUR ---
called and LM for Dr Casper to call me back re dc instruction for this pt
== END 2019-09-18 15:50 | disposition home or self-care (01) | DRG 313 ==
LOC: ER 16:07 → ED HOLD 22:53 → EDBEDREQ 22:55 → ORTHO 4S 23:25 → CICU 2S 09-15 17:10 → ORTHO 4S 09-16 12:10
PROVIDERS: ADMIT Internal Medicine; ATTEND Internal Medicine
PROC: 0QSH04Z Reposition Left Tibia with Internal Fixation Device, Open Approach (ICD-10-PCS; principal; 2019-09-16 16:00)
DX: S82.142A Displaced bicondylar fracture of left tibia, initial encounter for closed fracture (principal); B19.20 Unspecified viral hepatitis C without hepatic coma; F17.210 Nicotine dependence, cigarettes, uncomplicated; S82.832A Other fracture of upper and lower end of left fibula, initial encounter for closed fracture; J45.909 Unspecified asthma, uncomplicated; T78.3XXA Angioneurotic edema, initial encounter; V00.148A Other scooter (nonmotorized) accident, initial encounter; Y93.89 Activity, other specified; Y92.89 Other specified places as the place of occurrence of the external cause; Y99.8 Other external cause status; Z87.442 Personal history of urinary calculi
CPT/HCPCS: 36415; 73552; 73560; 73564; 73590; 73700; 76000; 80048; 82948; 83735; 85025; 87081; 94640; 94760; 96372; 96374; 97110; 97116; 97162; 97530; 99285; A4215; A4618; A7000; C1713; G0378; J0131; J0690; J0696; J0735; J1100; J1170; J1200; J1885; J2001; J2175; J2250; J2270; J2405; J2704; J2795; J3010; J3370; J7030; L1832

== ENCOUNTER 2019-12-11 08:14 | Emergency (ER) | payer MEDICAID ==
[~2019-12-11] VITALS: Ht 167.6 cm; Wt 72.7 kg
[~2019-12-11 08:14] MED LIST changes: -ALBU18HF2 INH; -ALBU8.5H8 INH; -AZIT250T PO; -BECL7.3A INH; +BUPR1FIL3 PO; -CYCL-1 PO; +HYDR-4353 PO; -METH4TAB81 PO; +NICO-631 TD; -NO HOME MEDS; -PRED50TA PO
[2019-12-11] MEDS ORDERED: methylPREDNISolone sod succ 125mg/2ml vial IV ONE (08:25)
[2019-12-11] MEDS ORDERED: normal saline 1000ML IV soln IVB ONE (08:25)
[2019-12-11] MEDS ORDERED: ipratropium 0.5 MG/2.5ML nebule IH ONE ×2 (08:25→09:40)
[2019-12-11] MEDS: albuterol 2.5 MG/3 ML nebule CONTNEB PRN ×2 (08:31→09:34)
--- NOTE | 2019-12-11 08:58 | NUR ---
pt states she is feeling better. she looks more comfortable.
[2019-12-11] MEDS ORDERED: predniSONE 20 mg tablet PO ONE (09:40)
[2019-12-11] MEDS ORDERED: ALBU18HF2 INH (09:50)
[2019-12-11] MEDS ORDERED: PRED20TA PO (09:50)
[2019-12-11 09:56] VITALS: BP 120/76
== END 2019-12-11 09:56 | disposition home or self-care (01) ==
LOC: ER 08:14
DX: J45.901 Unspecified asthma with (acute) exacerbation (principal); F17.200 Nicotine dependence, unspecified, uncomplicated; F12.90 Cannabis use, unspecified, uncomplicated; F15.90 Other stimulant use, unspecified, uncomplicated; F11.90 Opioid use, unspecified, uncomplicated; Z56.0 Unemployment, unspecified; Z87.442 Personal history of urinary calculi; Z86.19 Personal history of other infectious and parasitic diseases; Z88.1 Allergy status to other antibiotic agents; Z79.899 Other long term (current) drug therapy
CPT/HCPCS: 94644; 99285; J7512; 94640; 94760

== ENCOUNTER 2019-12-21 14:11 | Emergency (ER) | payer MEDICAID ==
[~2019-12-21] VITALS: Ht 167.6 cm; Wt 70.0 kg
[~2019-12-21 14:11] MED LIST changes: +ALBU18HF2 INH; +PRED20TA PO
[2019-12-21 14:40] VITALS: BP 135/94
== END 2019-12-21 15:03 | disposition home or self-care (01) ==
LOC: ER 14:12
DX: F15.10 Other stimulant abuse, uncomplicated (principal); J45.909 Unspecified asthma, uncomplicated; F12.90 Cannabis use, unspecified, uncomplicated; F11.90 Opioid use, unspecified, uncomplicated; Z86.19 Personal history of other infectious and parasitic diseases; Z00.8 Encounter for other general examination; Z56.0 Unemployment, unspecified; Z88.8 Allergy status to other drugs, medicaments and biological substances; Z79.899 Other long term (current) drug therapy
CPT/HCPCS: 99281

== ENCOUNTER 2020-01-02 10:51 | Emergency (ER) | payer MEDICAID ==
[~2020-01-02] VITALS: Ht 167.6 cm; Wt 72.7 kg
[2020-01-02 11:19] VITALS: BP 111/85
== END 2020-01-02 11:45 | disposition home or self-care (01) ==
LOC: ER 10:51
DX: R76.11 Nonspecific reaction to tuberculin skin test without active tuberculosis (principal); J45.909 Unspecified asthma, uncomplicated; F12.90 Cannabis use, unspecified, uncomplicated; F15.90 Other stimulant use, unspecified, uncomplicated; F11.90 Opioid use, unspecified, uncomplicated; Z56.0 Unemployment, unspecified; Z86.19 Personal history of other infectious and parasitic diseases
CPT/HCPCS: 99281

== ENCOUNTER 2020-05-29 04:29 | Emergency (ER) | payer MEDICAID ==
[~2020-05-29] VITALS: Ht 167.6 cm; Wt 75.0 kg
[~2020-05-29 04:29] MED LIST changes: -PRED20TA PO
[2020-05-29] MEDS ORDERED: ipratropium/albuterol 3ml nebule NEB ONE (04:50)
[2020-05-29] MEDS ORDERED: predniSONE 20 mg tablet PO ONE (04:50)
[2020-05-29] MEDS ORDERED: ALBU8.5H8 INH (04:52)
[2020-05-29] MEDS ORDERED: PRED20TA PO (04:52)
[2020-05-29 05:06] VITALS: BP 133/93
== END 2020-05-29 06:00 | disposition home or self-care (01) ==
LOC: ER 04:30
DX: J45.901 Unspecified asthma with (acute) exacerbation (principal); N20.0 Calculus of kidney; B19.20 Unspecified viral hepatitis C without hepatic coma; Z88.1 Allergy status to other antibiotic agents; Z79.899 Other long term (current) drug therapy
CPT/HCPCS: 36415; 87635; 94640; 99283; J7512; 94760

== ENCOUNTER 2023-10-04 09:09 | Emergency (ER) | payer MEDICAID ==
[~2023-10-04] VITALS: Ht 167.6 cm; Wt 80.0 kg
[~2023-10-04 09:09] MED LIST changes: +ALBU6.7H14 INH; -ALBU6.7H9 INH; +ALBU8.5H17 INH
[2023-10-04] MEDS: albuterol 2.5 MG/3 ML nebule NEB ONE (09:20)
[2023-10-04 09:22] VITALS: PULSE 130; RESP 20; O2SAT 97
[2023-10-04 09:27] VITALS: PULSE 123; RESP 20; O2SAT 100
[2023-10-04] MEDS ORDERED: ALB0.5UD NEB (09:54)
[2023-10-04] MEDS ORDERED: METH4TAB81 PO (09:54)
[2023-10-04] MEDS: methylPREDNISolone sod succ 125mg/2ml vial IM ONE (10:04)
[2023-10-04 10:08] VITALS: BP 142/91; PULSE 113; RESP 17; TEMP 97.9; O2SAT 97
== END 2023-10-04 10:10 | disposition home or self-care (01) ==
LOC: ER 09:09
DX: J45.901 Unspecified asthma with (acute) exacerbation (principal); F12.90 Cannabis use, unspecified, uncomplicated; F15.90 Other stimulant use, unspecified, uncomplicated; Z88.1 Allergy status to other antibiotic agents; Z79.899 Other long term (current) drug therapy
CPT/HCPCS: 94640; 96372; 99283; J2930; 94760

== ENCOUNTER 2023-10-14 05:54 | Inpatient (IN) | payer MEDICAID ==
[~2023-10-14] VITALS: Ht 162.6 cm; Wt 86.2 kg
[2023-10-14] VITALS (35 sets, daily range): BP systolic 92–138; BP diastolic 42–83; PULSE 109–145; RESP 17–29; TEMP 97.3; O2SAT 92–100
[~2023-10-14 05:54] MED LIST changes: +ALB0.5UD NEB; +METH4TAB81 PO
[2023-10-14] MEDS: magnesium 2GM in 50ml NS 50 ML IV ONE (06:03)
[2023-10-14] MEDS: ipratropium 0.5 MG/2.5ML nebule IH ONE (06:04)
[2023-10-14] MEDS: albuterol 2.5 MG/3 ML nebule NEB ONE (06:05)
[2023-10-14] MEDS: ipratropium/albuterol 3ml nebule NEB STA (06:05)
[2023-10-14] MEDS: albuterol 2.5 MG/3 ML nebule CONTNEB PRN (06:35)
[2023-10-14 06:53] LABS: ABG BASE EXCESS -17.1 mmol/L (-2.0-2.0); ABG HCO3 17.1 mmol/L (22.0-26.0); ABG OXYGEN SATURATION 95.3 % (94-97); ABG PCO2 (T) 85.6 mmHg (32.0-45.0); ABG PH (T) 6.913 (7.350-7.450); ALLEN'S TEST POSITIVE; FCOHb 0.1 % (0.0-3.9); FHHb 4.7 % (0.0-5.0); FMetHb 0.5 % (0.0-1.5); FO2Hb 94.7 % (94-97); MODE VENT - AC; PATIENT TEMPERATURE 36.4; PEEP 5 cm H2O; RESPIRATORY RATE 20 b/min; TIDAL VOLUME 350 mL; TOTAL HEMOGLOBIN 13.4 G/dl (12.0-16.0)
[2023-10-14] MEDS: normal saline 1000ML IV soln IVB ONE (07:03)
[2023-10-14] MEDS: midazolam 1 mg/ML 2ml injection IV ONE (07:05)
[2023-10-14] MEDS: methylPREDNISolone sod succ 125mg/2ml vial IV STA (07:05)
[2023-10-14] MEDS: ondansetron/PF 4mg/2ml inj IV ONE (07:06)
[2023-10-14] MEDS: LORazepam 2 mg/ml vial ONE (07:06)
[2023-10-14] MEDS: LORazepam 2 mg/ml vial IV STA (07:06)
[2023-10-14] MEDS: midazolam 1 mg/ML 2ml injection ONE (07:07)
[2023-10-14] MEDS: LORazepam 2 mg/ml vial IV ONE (07:07)
[2023-10-14] MEDS: propofol 1000mg/100ml bottle 100 ML IV PRN ×2 (07:09→12:47)
[2023-10-14] MEDS ORDERED: fentaNYL 50mcg/ml PF inj. 2,500 MCG in normal saline 250ml IV soln 200 ML IV SCH (07:25)
[2023-10-14] MEDS ORDERED: morphine 2 MG/ML inj. syringe IV PRN (07:30)
[2023-10-14] MEDS ORDERED: magnesium hydroxide 30ml (MOM) UD suspension PO PRN (07:30)
[2023-10-14] MEDS ORDERED: morphine 4 MG/ML inj SYRINge IV PRN (07:30)
[2023-10-14] MEDS ORDERED: ondansetron/PF 4mg/2ml inj IV PRN (07:30)
[2023-10-14] MEDS ORDERED: acetaminophen 325mg tablet PO PRN ×2 (07:30)
[2023-10-14] MEDS ORDERED: albuterol 2.5 MG/3 ML nebule NEB PRN (07:35)
[2023-10-14] MEDS: methylPREDNISolone sod succ 125mg/2ml vial IV SCH (07:39)
[2023-10-14 07:47] LABS: ABG BASE EXCESS -6.8 mmol/L (-2.0-2.0); ABG HCO3 20.5 mmol/L (22.0-26.0); ABG PCO2 (T) 45.9 mmHg (32.0-45.0); ABG PH (T) 7.264 (7.350-7.450); ABG PO2 (T) 443.5 mmHg (75.0-100.0); ALLEN'S TEST POSITIVE; MODE VENT - AC; PATIENT TEMPERATURE 36.2; PEEP 5 cm H2O; RESPIRATORY RATE 22 b/min; TIDAL VOLUME 20 mL
[2023-10-14] MEDS ORDERED: LIDOcaine 2% (20 mg/ml) 5ml cardiac syringe ONE (08:00)
[2023-10-14] MEDS ORDERED: ipratropium 0.5 MG/2.5ML nebule IH SCH (08:00)
[2023-10-14] MEDS ORDERED: etomidate 2mg/ml inj. ONE (08:00)
[2023-10-14] MEDS ORDERED: sod chloride 0.9% 10ml flush syringe IV ONE (08:00)
[2023-10-14] MEDS ORDERED: epiNEPHrine 0.1mg/ml 10ml syringe ONE (08:00)
[2023-10-14] MEDS ORDERED: atropine 0.1mg/ml 10ml syringe ONE (08:00)
[2023-10-14] MEDS ORDERED: methylPREDNISolone sod succ/PF 40mg inj. IV SCH (08:00)
[2023-10-14] MEDS ORDERED: succinylcholine 20mg/ml inj IV ONE (08:00)
[2023-10-14] MEDS ORDERED: albuterol 2.5 MG/3 ML nebule NEB SCH (08:00)
[2023-10-14] MEDS: fentaNYL 50mcg/ml PF inj. 2,500 MCG in normal saline 250ml IV soln 200 ML IV SCH (08:03)
[2023-10-14] MEDS: normal saline 1000ml 1,000 ML IV SCH (08:03)
[2023-10-14] MEDS: famotidine/PF 10 mg/ml inj IV SCH (08:08)
[2023-10-14 08:09] LABS: BASOPHILS % (AUTO) 0.1 % (0-1); EOSINOPHILS # (AUTO) 0.5 X10'3 (0-0.9); EOSINOPHILS % (AUTO) 1.9 % (0-6); HEMOGLOBIN 12.2 g/dl (12.0-16.0); LYMPHOCYTES % (AUTO) 3.9 % (21-51); MEAN CORPUSCULAR HEMOGLOBIN 28.4 PG (27.0-31.0); MEAN CORPUSCULAR HGB CONC 32.2 g/dL (33.0-36.5); MEAN CORPUSCULAR VOLUME 88.3 FL (78-98); MEAN PLATELET VOLUME 8.6 FL (7.4-10.4); MONOCYTES # (AUTO) 0.6 X10'3 (0-0.9); MONOCYTES % (AUTO) 2.4 % (2-12); NEUTROPHILS # (AUTO) 23.3 X10'3 (1.8-7.7); NEUTROPHILS % (AUTO) 91.7 % (42-75); PLATELET COUNT 215 X10'3 (140-440); RED CELL DISTRIBUTION WIDTH 13.7 % (11.5-14.5)
[2023-10-14 08:11] LABS: WHITE BLOOD COUNT 25.5 X10'3 (4.5-11.0)
[2023-10-14 08:13] LABS: HCG SERUM QL NEGATIVE
[2023-10-14 08:16] LABS: ALBUMIN 3.2 G/DL (3.4-5.0); ANION GAP 12 (8-16); BLOOD UREA NITROGEN 12 MG/DL (7-18); BUN/CREATININE RATIO 15.2 (10.0-20.0); CALCIUM 7.3 MG/DL (8.5-10.1); CHLORIDE 109 MMOL/L (99-107); CREATININE 0.79 MG/DL (0.40-0.90); GLUCOSE 151 MG/DL (70-104); POTASSIUM 3.9 MMOL/L (3.5-5.1); SODIUM 143 MMOL/L (135-145); TOTAL CARBON DIOXIDE 22.5 MMOL/L (24-32); eCRCL 84 ML/MIN; eGFR 82 ML/MIN
[2023-10-14] MEDS ORDERED: ALBU8HFA IH (08:23)
[2023-10-14 08:32] LABS: PLATELET ESTIMATE NORMAL; TOTAL CELLS COUNTED 100
[2023-10-14] MEDS: ipratropium/albuterol 3ml nebule NEB SCH (10:27)
[2023-10-14] MEDS: methylPREDNISolone sod succ/PF 40mg inj. IV SCH (12:50)
[2023-10-14 13:08] LABS: ALANINE AMINOTRANSFERASE 18 U/L (12-78); ALBUMIN/GLOBULIN RATIO 1.1 (1.1-1.5); ALKALINE PHOSPHATASE 48 IU/L (46-116); ASPARTATE AMINO TRANSFERASE 18 U/L (10-37); BILIRUBIN,TOTAL 0.2 MG/DL (0.1-1.0); PHOSPHORUS 5.4 MG/DL (2.3-4.5); TOTAL PROTEIN 6.2 G/DL (6.4-8.2)
[2023-10-14] MEDS ORDERED: dextrose 50%-water 50ml dispensing syringe IV PRN ×2 (13:35)
[2023-10-14] MEDS ORDERED: DEXTROSE 15 GM of carb/4 tabs (each vial/BOTTLE has 4 tablets) PO PRN ×2 (13:35)
[2023-10-14] MEDS ORDERED: glucagon, human recombinant 1mg kit SUBCUT PRN (13:35)
[2023-10-14] MEDS: insulin Lispro (HumaLOG) vial - multi-dose SQ SCH (15:01)
[2023-10-14] MEDS: enoxaparin 40mg/0.4ml syringe SQ SCH (19:51)
[2023-10-14] MEDS: FENTANYL 1000MCG/NS 100 ML BAG /PF IV PRN (19:52)
[2023-10-14 20:31] LABS: HEMOGLOBIN A1C 5.8 % (4.5-6.2)
[2023-10-14] MEDS: insulin glargine (Lantus) pen - multi-dose SQ SCH (21:00)
[2023-10-14 22:29] LABS: BILIRUBIN,URINE NEGATIVE (Neg); CLARITY,URINE CLOUDY (Clear); COLOR,URINE YELLOW (Yellow); GLUCOSE, URINE NEGATIVE (Neg); KETONES,URINE 40 mg/dl (Neg); LEUKOCYTE ESTERASE ,URINE NEGATIVE (Neg); OCCULT BLOOD,URINE TRACE-INTACT (Neg); PROTEIN,URINE NEGATIVE (Neg); UROBILINOGEN,URINE 0.2 E.U/dL (0.2-1.0)
[2023-10-14 22:41] LABS: UA COLLECTION TYPE FOLEY CATH
[2023-10-14 22:47] LABS: URINE AMPHETAMINE SCREEN POSITIVE (Neg); URINE BARBITUATE SCREEN NEGATIVE (Neg); URINE BENZODIAZEPINES SCREEN POSITIVE (Neg); URINE CANNABINOID SCREEN NEGATIVE (Neg); URINE COCAINE SCREEN NEGATIVE (Neg); URINE METHADONE SCREEN NEGATIVE (Neg); URINE OPIATE SCREEN POSITIVE (Neg); URINE PHENCYCLIDINE SCREEN NEGATIVE (Neg)
[2023-10-14 22:58] LABS: NITRITES, URINE NEGATIVE (Neg)
[2023-10-14 22:59] LABS: RBC,URINE 0-2 /HPF (0-2); WBC,URINE 0-4 /HPF (0-4)
[2023-10-14 23:00] LABS: BACTERIA,URINE FEW /HPF (Neg); SQUAMOUS EPITHELIAL CELL,UR FEW /LPF (FEW); URIC ACID CRYSTALS 3+ /HPF (NEGATIVE)
[2023-10-15] VITALS (28 sets, daily range): BP systolic 88–110; BP diastolic 35–63; PULSE 100–124; RESP 8–19; O2SAT 93–98
[2023-10-15 03:18] LABS: ABG BASE EXCESS -4.1 mmol/L (-2.0-2.0); ABG HCO3 21.1 mmol/L (22.0-26.0); ABG OXYGEN SATURATION 92.8 % (94-97); ABG PCO2 (T) 39.4 mmHg (32.0-45.0); ABG PH (T) 7.347 (7.350-7.450); ABG PO2 (T) 67.4 mmHg (75.0-100.0); FCOHb 0.2 % (0.0-3.9); FHHb 7.2 % (0.0-5.0); FO2Hb 92.6 % (94-97); MODE prvc; PATIENT TEMPERATURE 37.2; PEEP 5 cm H2O; RESPIRATORY RATE 18 b/min; TIDAL VOLUME 400 mL; TOTAL HEMOGLOBIN 12.1 G/dl (12.0-16.0)
[2023-10-15 04:22] LABS: BASOPHILS # (AUTO) 0.1 X10'3 (0-0.2); BASOPHILS % (AUTO) 0.4 % (0-1); EOSINOPHILS % (AUTO) 0 % (0-6); HEMATOCRIT 33.7 % (35.0-45.0); HEMOGLOBIN 11.2 g/dl (12.0-16.0); LYMPHOCYTES # (AUTO) 0.5 X10'3 (1.1-4.8); LYMPHOCYTES % (AUTO) 3.1 % (21-51); MEAN CORPUSCULAR HGB CONC 33.2 g/dL (33.0-36.5); MEAN CORPUSCULAR VOLUME 87.4 FL (78-98); MEAN PLATELET VOLUME 8.2 FL (7.4-10.4); MONOCYTES # (AUTO) 0.2 X10'3 (0-0.9); MONOCYTES % (AUTO) 1.6 % (2-12); NEUTROPHILS # (AUTO) 15.1 X10'3 (1.8-7.7); NEUTROPHILS % (AUTO) 94.9 % (42-75); PLATELET COUNT 207 X10'3 (140-440); RED BLOOD COUNT 3.85 X10'6 (4.20-5.60); RED CELL DISTRIBUTION WIDTH 13.7 % (11.5-14.5); WHITE BLOOD COUNT 15.9 X10'3 (4.5-11.0)
[2023-10-15 04:40] LABS: ALANINE AMINOTRANSFERASE 17 U/L (12-78); ALBUMIN 2.9 G/DL (3.4-5.0); ALBUMIN/GLOBULIN RATIO 1.1 (1.1-1.5); ALKALINE PHOSPHATASE 39 IU/L (46-116); ANION GAP 7 (8-16); ASPARTATE AMINO TRANSFERASE 28 U/L (10-37); BILIRUBIN,TOTAL 0.3 MG/DL (0.1-1.0); BLOOD UREA NITROGEN 12 MG/DL (7-18); BUN/CREATININE RATIO 16.9 (10.0-20.0); CALCIUM 8.1 MG/DL (8.5-10.1); CHLORIDE 110 MMOL/L (99-107); CREATININE 0.71 MG/DL (0.40-0.90); GLUCOSE 143 MG/DL (70-104); MAGNESIUM 2.1 MG/DL (1.5-2.4); PHOSPHORUS 3.3 MG/DL (2.3-4.5); POTASSIUM 4.5 MMOL/L (3.5-5.1); SODIUM 142 MMOL/L (135-145); TOTAL PROTEIN 5.5 G/DL (6.4-8.2); eCRCL 94 ML/MIN; eGFR > 90 ML/MIN
[2023-10-15] MEDS: dexmedetomidine inj. 400 MCG in normal saline 100ml IV soln 96 ML IV SCH (08:07)
[2023-10-15] MEDS ORDERED: quetiapine 100mg tablet PO SCH (20:00)
== END 2023-10-15 15:20 | disposition left against medical advice (07) | DRG 812 ==
LOC: ER 05:55 → ED HOLD 07:33 → CICU 2S 08:57
PROVIDERS: ADMIT Internal Medicine Critical Care Medicine; ATTEND Internal Medicine Critical Care Medicine
PROC: 5A1945Z Respiratory Ventilation, 24-96 Consecutive Hours (ICD-10-PCS; principal; 2023-10-14)
PROC: 0BH17EZ Insertion of Endotracheal Airway into Trachea, Via Natural or Artificial Opening (ICD-10-PCS; 2023-10-14)
PROC: 5A12012 Performance of Cardiac Output, Single, Manual (ICD-10-PCS; 2023-10-14)
DX: T43.651A Poisoning by methamphetamines accidental (unintentional), initial encounter (principal); I46.9 Cardiac arrest, cause unspecified; J96.01 Acute respiratory failure with hypoxia; J96.02 Acute respiratory failure with hypercapnia; J45.902 Unspecified asthma with status asthmaticus; E87.4 Mixed disorder of acid-base balance; E83.51 Hypocalcemia; E88.09 Other disorders of plasma-protein metabolism, not elsewhere classified; R65.10 Systemic inflammatory response syndrome (SIRS) of non-infectious origin without acute organ dysfunction; R00.1 Bradycardia, unspecified; D64.9 Anemia, unspecified; J20.8 Acute bronchitis due to other specified organisms; F15.10 Other stimulant abuse, uncomplicated; A49.9 Bacterial infection, unspecified; B34.9 Viral infection, unspecified; Z87.442 Personal history of urinary calculi; Z88.1 Allergy status to other antibiotic agents; Z87.891 Personal history of nicotine dependence; Z79.899 Other long term (current) drug therapy; Z87.440 Personal history of urinary (tract) infections; Z86.19 Personal history of other infectious and parasitic diseases; Z56.0 Unemployment, unspecified; Y92.89 Other specified places as the place of occurrence of the external cause
CPT/HCPCS: 36415; 36600; 71045; 80053; 80305; 81001; 82803; 82948; 83036; 83735; 84100; 84703; 85007; 85018; 85025; 87070; 87081; 94002; 94003; 94640; 94760; 99291; 99292; A4615; A5200; A6213; A7015; C1758; G0378; J0171; J0330; J0461; J1650; J1815; J2060; J2250; J2704; J2920; J2930; J3010; J3475; J3490; J7030; J7050

== ENCOUNTER 2023-11-03 16:24 | Emergency (ER) | payer MEDICAID ==
[~2023-11-03] VITALS: Ht 167.6 cm; Wt 74.6 kg
[~2023-11-03 16:24] MED LIST changes: -ALB0.5UD NEB; -ALBU18HF2 INH; -ALBU6.7H14 INH; -ALBU8.5H17 INH; +ALBU8HFA IH; -BUPR1FIL3 PO; -HYDR-4353 PO; -METH4TAB81 PO; -NICO-631 TD
[2023-11-03 16:27] VITALS: TEMP 100.3
[2023-11-03] MEDS: albuterol 2.5 MG/3 ML nebule CONTNEB PRN (16:49)
[2023-11-03 16:54] VITALS: PULSE 110; RESP 18; O2SAT 95
[2023-11-03 17:09] VITALS: PULSE 111; RESP 18; O2SAT 93
[2023-11-03] MEDS: LORazepam 2 mg/ml vial IV ONE (17:36)
[2023-11-03] MEDS: methylPREDNISolone sod succ 125mg/2ml vial IV ONE (17:37)
[2023-11-03] MEDS: normal saline 1000ML IV soln IVB ONE (17:38)
[2023-11-03] MEDS: magnesium 2GM in 50ml NS 50 ML IV ONE (17:39)
[2023-11-03 17:59] LABS: BASOPHILS # (AUTO) 0.1 X10'3 (0-0.2); BASOPHILS % (AUTO) 1.7 % (0-1); EOSINOPHILS # (AUTO) 0.1 X10'3 (0-0.9); EOSINOPHILS % (AUTO) 3.9 % (0-6); HEMATOCRIT 38.6 % (35.0-45.0); HEMOGLOBIN 13.2 g/dl (12.0-16.0); LYMPHOCYTES # (AUTO) 0.7 X10'3 (1.1-4.8); LYMPHOCYTES % (AUTO) 23.1 % (21-51); MEAN CORPUSCULAR HGB CONC 34.1 g/dL (33.0-36.5); MEAN CORPUSCULAR VOLUME 85.3 FL (78-98); MEAN PLATELET VOLUME 8.7 FL (7.4-10.4); MONOCYTES # (AUTO) 0.5 X10'3 (0-0.9); MONOCYTES % (AUTO) 15.5 % (2-12); NEUTROPHILS # (AUTO) 1.7 X10'3 (1.8-7.7); NEUTROPHILS % (AUTO) 55.8 % (42-75); PLATELET COUNT 237 X10'3 (140-440); RED BLOOD COUNT 4.53 X10'6 (4.20-5.60); RED CELL DISTRIBUTION WIDTH 13.6 % (11.5-14.5); WHITE BLOOD COUNT 3.1 X10'3 (4.5-11.0)
[2023-11-03 18:03] LABS: ALBUMIN 3.3 G/DL (3.4-5.0); ANION GAP 10 (8-16); BLOOD UREA NITROGEN 7 MG/DL (7-18); BUN/CREATININE RATIO 10.1 (10.0-20.0); CALCIUM 8.3 MG/DL (8.5-10.1); CHLORIDE 104 MMOL/L (99-107); CREATININE 0.69 MG/DL (0.40-0.90); GLUCOSE 107 MG/DL (70-104); SODIUM 137 MMOL/L (135-145); TOTAL CARBON DIOXIDE 22.6 MMOL/L (24-32); eCRCL 105 ML/MIN; eGFR > 90 ML/MIN
[2023-11-03] MEDS ORDERED: LEVO750T68 PO (18:11)
[2023-11-03] MEDS ORDERED: PRED20TA PO (18:11)
[2023-11-03] MEDS ORDERED: BUDE180A INH (18:11)
[2023-11-03] MEDS ORDERED: ALBU6.7H14 INH (18:11)
[2023-11-03] MEDS: levoFLOXACIN 750MG TABLET PO ONE (18:22)
[2023-11-03 18:25] LABS: TOTAL CELLS COUNTED 100
[2023-11-03 18:27] LABS: PLATELET ESTIMATE NORMAL
[2023-11-03 19:09] VITALS: BP 131/81; PULSE 119; RESP 17
== END 2023-11-03 20:12 | disposition home or self-care (01) ==
LOC: ER 16:24
DX: J45.901 Unspecified asthma with (acute) exacerbation (principal); F17.200 Nicotine dependence, unspecified, uncomplicated; F12.10 Cannabis abuse, uncomplicated; F11.10 Opioid abuse, uncomplicated; Z59.00 Homelessness unspecified; Z88.1 Allergy status to other antibiotic agents; Z79.899 Other long term (current) drug therapy; Z79.1 Long term (current) use of non-steroidal anti-inflammatories (NSAID); Z87.442 Personal history of urinary calculi
CPT/HCPCS: 36415; 71045; 80048; 83605; 84145; 85007; 85025; 87040; 87502; 87503; 94640; 94644; 96365; 96366; 96375; 99285; J2060; J2930; J3475; J7030; 94760; A7015

== ENCOUNTER 2024-06-23 21:22 | Emergency (ER) | payer MEDICAID ==
[~2024-06-23] VITALS: Ht 167.6 cm; Wt 81.8 kg
[~2024-06-23 21:22] MED LIST changes: +ALBU6.7H14 INH; +BUDE180A5 INH
[2024-06-23 21:25] VITALS: BP 132/87; PULSE 125; RESP 18; TEMP 98.9; O2SAT 100
[2024-06-23] MEDS ORDERED: ALBU8HFA INH (22:37)
[2024-06-23] MEDS ORDERED: PRED20TA PO (22:37)
== END 2024-06-23 22:50 | disposition home or self-care (01) ==
LOC: ER 21:23
DX: F19.10 Other psychoactive substance abuse, uncomplicated (principal); J45.909 Unspecified asthma, uncomplicated; F12.90 Cannabis use, unspecified, uncomplicated; F15.90 Other stimulant use, unspecified, uncomplicated; F11.90 Opioid use, unspecified, uncomplicated; Z56.0 Unemployment, unspecified; Z87.442 Personal history of urinary calculi; Z88.1 Allergy status to other antibiotic agents; Z79.899 Other long term (current) drug therapy
CPT/HCPCS: 99283

== ENCOUNTER 2024-09-06 23:06 | Emergency (ER) | payer MEDICAID ==
[~2024-09-06] VITALS: Ht 175.3 cm; Wt 65.3 kg
[2024-09-07] MEDS ORDERED: HYDR-3965 PO (00:04)
[2024-09-07] MEDS: HYDROcodone/acetaminophen 5mg/325mg tablet PO ONE (00:09)
[2024-09-07] MEDS: ondansetron 4mg rapidly disintigrating tab PO ONE (00:09)
[2024-09-07 00:13] VITALS: BP 130/86; PULSE 99; RESP 20; TEMP 98.9; O2SAT 99
== END 2024-09-07 00:14 | disposition home or self-care (01) ==
LOC: ER 23:07
DX: M25.562 Pain in left knee (principal); J45.909 Unspecified asthma, uncomplicated; Z87.442 Personal history of urinary calculi; F12.90 Cannabis use, unspecified, uncomplicated; F11.90 Opioid use, unspecified, uncomplicated; F15.90 Other stimulant use, unspecified, uncomplicated; Z88.1 Allergy status to other antibiotic agents
CPT/HCPCS: 73564; 99283

== ENCOUNTER 2024-09-19 17:18 | Emergency (ER) | payer MEDICAID ==
[~2024-09-19] VITALS: Ht 167.6 cm; Wt 80.3 kg
[2024-09-19] MEDS: ipratropium/albuterol 3ml nebule NEB STA (20:09)
[2024-09-19 20:10] VITALS: PULSE 87; RESP 20; O2SAT 99
[2024-09-19 20:18] VITALS: PULSE 93; RESP 18; O2SAT 98
[2024-09-19] MEDS ORDERED: ALBU18HF2 INH (20:23)
[2024-09-19] MEDS ORDERED: DOXY100C43 PO (20:23)
[2024-09-19] MEDS: ketorolac trometh 15mg/ml vial 15 MG/ML ML IM ONE (20:23)
[2024-09-19] MEDS: DOXYCYCLINE 100MG CAPSULE PO STA (20:23)
[2024-09-19] MEDS ORDERED: BENZ-38 PO (20:23)
[2024-09-19 20:31] VITALS: BP 124/89; PULSE 90; RESP 20; TEMP 98.6; O2SAT 97
== END 2024-09-19 20:35 | disposition home or self-care (01) ==
LOC: ER 17:19
DX: J40 Bronchitis, not specified as acute or chronic (principal); M79.10 Myalgia, unspecified site; Z87.440 Personal history of urinary (tract) infections; F12.90 Cannabis use, unspecified, uncomplicated; F17.210 Nicotine dependence, cigarettes, uncomplicated; F15.90 Other stimulant use, unspecified, uncomplicated; F11.90 Opioid use, unspecified, uncomplicated; Z20.822 Contact with and (suspected) exposure to COVID-19; Z88.1 Allergy status to other antibiotic agents
CPT/HCPCS: 36415; 71045; 87502; 87503; 87811; 94640; 96372; 99284; J1885; 94760

== ENCOUNTER 2024-10-23 21:15 | Emergency (ER) | payer MEDICAID ==
[~2024-10-23] VITALS: Ht 167.6 cm; Wt 83.4 kg
[~2024-10-23 21:15] MED LIST changes: +ALBU18HF2 INH
[2024-10-23] MEDS: ipratropium 0.5 MG/2.5ML nebule IH ONE (21:50)
[2024-10-23] MEDS: albuterol 2.5 MG/3 ML nebule CONTNEB PRN (21:50)
[2024-10-23 21:51] VITALS: PULSE 111; RESP 16; O2SAT 95
[2024-10-23] MEDS: methylPREDNISolone sod succ 125mg/2ml vial IV ONE (22:04)
[2024-10-23 22:22] VITALS: PULSE 114; RESP 16; O2SAT 97
[2024-10-24] MEDS ORDERED: PRED20TA PO (00:13)
[2024-10-24 00:41] VITALS: BP 131/82; PULSE 125; RESP 16; TEMP 98.3; O2SAT 96
== END 2024-10-24 00:45 | disposition home or self-care (01) ==
LOC: ER 21:15
DX: J45.909 Unspecified asthma, uncomplicated (principal); F17.200 Nicotine dependence, unspecified, uncomplicated; F15.90 Other stimulant use, unspecified, uncomplicated; F11.90 Opioid use, unspecified, uncomplicated; Z88.1 Allergy status to other antibiotic agents; Z79.52 Long term (current) use of systemic steroids; Z79.899 Other long term (current) drug therapy; Z56.0 Unemployment, unspecified; Z87.442 Personal history of urinary calculi
CPT/HCPCS: 36415; 84484; 93005; 94644; 96374; 99285; J2919; 94640; 94760; A7015

== ENCOUNTER 2024-11-14 21:17 | Emergency (ER) | payer MEDICAID ==
[~2024-11-14] VITALS: Ht 167.6 cm; Wt 81.7 kg
[~2024-11-14 21:17] MED LIST changes: +PRED20TA PO
[2024-11-14] MEDS: ipratropium/albuterol 3ml nebule NEB STA (22:27)
[2024-11-14] MEDS ORDERED: PROM25TA14 PO (22:44)
[2024-11-14] MEDS ORDERED: ACET-3068 PO (22:44)
[2024-11-14] MEDS ORDERED: ALBU8HFA INH (22:44)
[2024-11-14] MEDS ORDERED: AZIT250T89 PO (22:44)
[2024-11-14] MEDS ORDERED: ONDA-243 PO (22:44)
[2024-11-14] MEDS: dexamethasone sod phosphate 10mg/ml inj PO STA (22:50)
[2024-11-14] MEDS: ondansetron 4mg rapidly disintigrating tab PO ONE (22:50)
[2024-11-14] MEDS: ketorolac trometh 30MG/ML vial 30 MG/ML VIAL IV ONE (22:51)
[2024-11-14] MEDS: normal saline 1000ml 1,000 ML IV ONE (22:51)
[2024-11-14 23:38] VITALS: BP 126/72; PULSE 120; RESP 16; TEMP 97.8; O2SAT 92
== END 2024-11-14 23:49 | disposition home or self-care (01) ==
LOC: ER 21:18
DX: R11.2 Nausea with vomiting, unspecified (principal); M79.10 Myalgia, unspecified site; B34.9 Viral infection, unspecified; J45.909 Unspecified asthma, uncomplicated; Z87.440 Personal history of urinary (tract) infections; Z20.822 Contact with and (suspected) exposure to COVID-19; Z88.1 Allergy status to other antibiotic agents; Z88.8 Allergy status to other drugs, medicaments and biological substances
CPT/HCPCS: 36415; 71045; 87811; 96361; 96374; 99284; J1100; J1885; J7030; 99283

== ENCOUNTER 2024-12-01 10:43 | Emergency (ER) | payer MEDICAID ==
[~2024-12-01] VITALS: Ht 167.6 cm; Wt 75.0 kg
[~2024-12-01 10:43] MED LIST changes: +ALBU8HFA INH; +ONDA-243 PO; -PRED20TA PO
[2024-12-01 11:21] VITALS: PULSE 104; PULSE 110; RESP 20; O2SAT 97; O2SAT 98
[2024-12-01] MEDS: ipratropium/albuterol 3ml nebule NEB ONE ×2 (11:21→12:07)
--- NOTE | 2024-12-01 11:43 | Physician Documentation ---
History of Present Illness ~ Chief Complaint: Asthma Stated Complaint: ASTHMA Time Seen by MD: 11:17 Primary Medical Doctor: [facility] This 39-year-old female with history of asthma presents with more frequent asthma attacks, worsening in severity and frequency over the last four days, patient reports that her albuterol inhalers no helping and then her home n ebulizer as broken, patient reports that she does not see a primary care provider for her asthma. Patient reports that she was sick a few weeks ago and that she has been having more frequent asthma attacks since then. Patient reports possibility of seasonal allergies however she has never been diagnosed with patient reports currently she has a stuffy nose. Medication Reconciliation Allergies: Coded Allergies: vancomycin (Verified Allergy, Severe, angioedema/ TONGUE SWELLING, 12/01/24) Scheduled Albuterol Sulfate (Proventil Hfa), 2 PUFFS INH Q4H Budesonide (Pulmicort Flexhaler), 2 PUFFS INH Q12H Fluticasone/Salmeterol (Fluticasone-Salmeterol 55-14), 1 PUFFS INH Q12H Ipratropium/Albuterol Sulfate (Duoneb 2.5-0.5 Mg/3 Ml Soln), 1 VIAL NEB Q12H Loratadine (Loratadine), 1 TAB PO DAILY Prednisone* (Prednisone*), 3 TAB PO DAILY Scheduled PRN Albuterol Sulfate (Ventolin Hfa), 2 PUFFS INH Q4HPRN PRN for wheezing Albuterol Sulfate Nebs* (Proventil Nebs*), 1 VIAL NEB Q4H PRN for SOB or wheezing ONDANSETRON ODT 4mg tablet (Ondansetron Odt), 1 TAB PO Q6H PRN PRN for nausea/vomiting albuterol inhaler (Pro-Air Inhaler), 2 PUFFS IH Q4H PRN for SOB or wheezing, (Reported) albuterol inhaler (Pro-Air Inhaler), 2 PUFFS INH Q4HPRN PRN for wheezing albuterol inhaler (Pro-Air Inhaler), 1-2 PUFFS PO Q4H PRN for shortness of breath Discontinued Medications Prednisone* (Prednisone*), 2 TAB PO DAILY Discontinued Reason: Auto Discontinued Durable Medical Equipment Nebulizer and Compressor (Compressor Nebulizer System), EA NEB for SOB or wheezing, (DME) Past Medical History Past Medical History: Asthma, Bronchitis, Hepatitis C, Kidney Stones, UTI Past Surgical History: noncontributory Other Past Family History: Noncontributory Alcohol Use: Rarely Drug Use: methamphetamine, heroin Lives with: S/O Lives In: Home Occupation: unemployed Review of Systems ROS Wheezing and shortness of breath as stated above in the HPI, otherwise all systems are reviewed and negative. Physical Exam Vital Signs: Temperature: 97.9, Source: Temporal, Heart Rate: 104, Respiratory Rate: 20, BP: 126/93, Pulse Oximetry: 98, Weight: 75.000 Oxygen Flow Rate: 0 Physical Exam VITALS: Reviewed and as above. GENERAL: Alert and oriented, nontoxic appearing, no apparent distress. RESPIRATORY: Diminished and expiratory wheezes in all lung barnes, mild increased work of breathing, no acute respiratory distress CHEST: No accessory muscle use, no retractions CV: Regular rate, rhythm, no murmur Progress Results/Orders Results/Orders Orders - HEMA WHEELER [employer]ENSATION AND BENEFITS ADVISOR Chest,Two Views (12/01/24 11:30) Svn Treatment (12/01/24 13:50) Completed Orders - HEMA WHEELER [employer]ATION [employer] BENEFITS ADVISOR Chest,Two Views (12/01/24 11:30) Prednisone Tablet (Prednisone Tablet) (12/01/24 11:30) Ipratropium/Albuterol Nebule (Ipratrop/A (12/01/24 11:55) Albuterol 2.5mg/3ml Nebule (Proventil 2. (12/01/24 13:50) Vital Signs 12/01/24 12/01/24 12/01/24 12/01/24 10:59 11:21 11:21 11:54 Temp 97.9 Pulse 103 104 110 Resp 21 20 20 16 B/P (MAP) 126/93 Pulse Ox 94 98 97 O2 Delivery Room Air* O2 Flow Rate 0 0 0 FiO2 N/A N/A 12/01/24 12/01/24 12/01/24 12/01/24 12:09 12:09 13:35 14:06 Temp 97.9 Pulse 96 122 97 101 Resp 20 20 14 20 B/P (MAP) 118/92 (101) Pulse Ox 98 98 95 O2 Delivery Room Air* Room Air* Room Air* O2 Flow Rate 0 0 0 0 FiO2 N/A N/A N/A 21 12/01/24 12/01/24 14:13 14:22 Temp 97.9 Pulse 113 100 Resp 20 16 B/P (MAP) 126/78 Pulse Ox 98 94 O2 Delivery Room Air* O2 Flow Rate 0 FiO2 21 EKG/XRAY/CT/US/VASC/MRI Chest X-Ray : Additional Comments CHEST RADIOGRAPH Indication: Cough Technique: Frontal and lateral view of the chest was obtained Comparison: CHEST,TWO VIEWS on DOS: 06/23/19 FINDINGS: Lines and Tubes: None Lungs: Clear Pleura: No effusion. No pneumothorax. Cardiomediastinal contours: Unremarkable Bones: Unremarkable IMPRESSION: No evidence of acute disease. Electronically Signed by:JAY BATRES MD Date & Time: 12/01/24 1157 Dictated by: JAY BATRES MD Dictation date and time: 12/01/24 1147 I have reviewed and agree with the radiology report. I have reviewed and interpreted the imaging as: No focal consolidation or pneumothorax Medical Decision Making Findings This 39-year-old female with a history of asthma presented to the emergency department with increasing frequency and severity of asthma attacks for the past four days, patient was unable to control symptoms at home with rescue inhaler and her albuterol nebulizer which typically provided her relief had broken. Patient was found to be mildly tachypneic without acute respiratory distress t earl with diminished lung sounds with expiratory wheezes in all barnes which improved significantly after breathing treatment, patient reported significant improvement in symptoms after breathing treatment with DuoNeb, this finding was highly reassuring. Chest x-ray did not demonstrate evidence of pneumonia. Remainder of physical exam was benign and while patient continued to have some wheezing in all lung barnes after treatment she did have a preference for discharge home, as patient does not have preventative medications prescribed patient was provided 30 day prescription for preventative medications for asthma and started on a course of prednisone with 1st dose of prednisone given in the emergency department. Patient provided careful return to care precautions which she verbalized understanding of. Patient provided detailed home care instructions and instructed to follow up as soon as possible with primary care provider to manage asthma outpatient. Differential Dx:Considerations: Include: anxiety, bronchitis, panic attack, pneumonia, pneumonitis, pulmonary embolism, respiratory distress, respiratory failure, upper resp. infection Departure Time of Disposition: 13:26 Disposition: 01 HOME / SELF CARE / HOMELESS Impression: Primary Impression: Asthma exacerbation Qualified Codes: J45.901 - Unspecified asthma with (acute) exacerbation Condition: Improved Discharge Instructions: Asthma Attack Prevention, Adult, Asthma, Adult, Easy-t o-Read Additional Instructions: Please follow up with the primary care provider as soon as possible to manage your asthma. Please use the prescribed prednisone daily for the next five days, use the fluticasone inhaler twice a day as this is a preventative medication for your asthma, use the prescribed albuterol inhaler or nebulizer as needed for shortness of breath and wheezing, please use the prescribed allergy medications for the sinus congestion. Please return to the emergency department for any new or worsening concerning symptoms including difficulty breathing or a fever over 100.4 that does not lower with ibuprofen or Tylenol. Referrals: NO PRIMARY CARE PROVIDER (PCP) Prescriptions Nebulizer and Compressor (Compressor Nebulizer System) 1 Each Each EA NEB PRN for SOB or wheezing, #1 Prov: HEMA WHEELER [facility] 12/01/24 Loratadine (Loratadine) 10 Mg Tablet 1 TAB PO DAILY for allergy symptoms for 30 Days, #30 TAB 0 Refills Prov: HEMA WHEELER [facility] 12/01/24 albuterol inhaler (Pro-Air Inhaler) 8.5 Gm Inhaler 1-2 PUFFS PO Q4H PRN for shortness of breath, #1 INH Prov: HEMA WHEELER [facility] 12/01/24 Ipratropium/Albuterol Sulfate (Duoneb 2.5-0.5 Mg/3 Ml Soln) 0.5 Mg-3 Mg (2.5 Mg Base)/3 Ml Ampul.neb 1 VIAL NEB Q12H for 30 Days, #180 ML 0 Refills Prov: HEMA WHEELER [facility] 12/01/24 Albuterol Sulfate Nebs* (Proventil Nebs*) 2.5 Mg/0.5 Ml Vial.neb 1 VIAL NEB Q4H PRN for SOB or wheezing for 30 Days, #90 ML Prov: HEMA WHEELER [facility] 12/01/24 Fluticasone/Salmeterol (Fluticasone-Salmeterol 55-14) 55 Mcg-14 Mcg/Actuation Aer.pow.ba 1 PUFFS INH Q12H for 30 Days, #1 EA 0 Refills Prov: HEMA WHEELER 12/01/24 Prednisone* (Prednisone*) 20 Mg Tablet 3 TAB PO DAILY for 5 Days, #15 TAB Prov: HEMA WHEELER 12/01/24 Education Educated: Patient Educated regarding: diagnosis, treatment, prognosis, need for follow up Signature Scribe Signature: No scribe Attestation: The note accurately reflects work and decisions made by me.JORGE LUIS Jaime 12/01/24 22:20 HEMA WHEELER Dec 01, 2024 11:42
[2024-12-01] MEDS: predniSONE 20 mg tablet PO ONE (11:52)
--- NOTE | 2024-12-01 11:59 | RADIOLOGY REPORT ---
CHEST RADIOGRAPH Indication: Cough Technique: Frontal and lateral view of the chest was obtained Comparison: CHEST,TWO VIEWS on DOS: 06/23/19 FINDINGS: Lines and Tubes: None Lungs: Clear Pleura: No effusion. No pneumothorax. Cardiomediastinal contours: Unremarkable Bones: Unremarkable IMPRESSION: No evidence of acute disease.
[2024-12-01 12:09] VITALS: PULSE 122; PULSE 96; RESP 20; O2SAT 98
[2024-12-01] MEDS ORDERED: FLUT1AER3 INH (13:43)
[2024-12-01] MEDS ORDERED: IPRA3AMP31 NEB (13:43)
[2024-12-01] MEDS ORDERED: ALB0.5UD NEB (13:43)
[2024-12-01] MEDS ORDERED: LORA10TA7 PO (13:43)
[2024-12-01] MEDS ORDERED: PRED20TA PO (13:43)
[2024-12-01] MEDS ORDERED: ALBU8HFA PO (13:43)
[2024-12-01 14:06] VITALS: PULSE 101; RESP 20
[2024-12-01] MEDS: albuterol 2.5 MG/3 ML nebule NEB ONE (14:06)
[2024-12-01 14:13] VITALS: PULSE 113; RESP 20; O2SAT 98
[2024-12-01] MEDS ORDERED: NEBU-245 NEB (14:16)
[2024-12-01 14:22] VITALS: BP 126/78; PULSE 100; RESP 16; TEMP 97.9; O2SAT 94
== END 2024-12-01 14:24 | disposition home or self-care (01) ==
LOC: ER 10:44
DX: J45.901 Unspecified asthma with (acute) exacerbation (principal); F11.90 Opioid use, unspecified, uncomplicated; F15.90 Other stimulant use, unspecified, uncomplicated; Z87.440 Personal history of urinary (tract) infections; Z88.1 Allergy status to other antibiotic agents; Z88.8 Allergy status to other drugs, medicaments and biological substances
CPT/HCPCS: 71046; 94640; 99285; J7512; 94760; 99283

== ENCOUNTER 2025-06-15 13:54 | Emergency (ER) | payer MEDICAID ==
[~2025-06-15] VITALS: Ht 167.6 cm; Wt 78.0 kg
[~2025-06-15 13:54] MED LIST changes: -ALBU8HFA INH; +FLUT1AER3 INH; +IPRA3AMP31 NEB; +LORA10TA7 PO; +NEBU-245 NEB
[2025-06-15 14:01] VITALS: BP 157/83; TEMP 97.6
[2025-06-15] MEDS: albuterol 2.5 MG/3 ML nebule NEB ONE ×2 (14:15→14:31)
[2025-06-15 14:16] VITALS: PULSE 109; RESP 22; O2SAT 98
[2025-06-15 14:23] VITALS: PULSE 109; RESP 20
[2025-06-15 14:32] VITALS: PULSE 108; RESP 19; O2SAT 98
[2025-06-15 14:37] VITALS: PULSE 109; RESP 20
[2025-06-15] MEDS ORDERED: ALBU18HF2 INH (15:08)
[2025-06-15] MEDS ORDERED: IPRA3AMP31 NEB (15:08)
[2025-06-15] MEDS ORDERED: METH4TAB81 PO (15:08)
--- NOTE | 2025-06-15 15:08 | Physician Documentation ---
History of Present Illness General Chief Complaint: Shortness of Breath Stated Complaint: ASTHMA Time Seen by MD: 14:18 Primary Medical Doctor: DONAL TERRAZAS Mode of Arrival: POV, Dropped Off History of Present Illness Initial Comments This is a pleasant 40-year-old female with a known history of asthma, previous history of intubation secondary to asthma, most recent exacerbation of asthma/steroid treatment several months ago, presents for evaluation of shor tness a breath starting this morning. No obvious trigger, trauma provocation. No known infectious exposure. She does report URI for the last several days. She denies any exposure to COVID or influenza. Denies any fever or chills. Denies any cough. Shortness a breath accompanied by wheezing similar to prior asthma exacerbation. At home treatments have not help. Denies any chest pain. Denies any nausea, vomiting, diarrhea, abdominal pain. Denies any concern for tobacco, alcohol or illicit substances use Medication Reconciliation Allergies: Coded Allergies: vancomycin (Verified Allergy, Severe, angioedema/ TONGUE SWELLING, 06/15/25) Scheduled Budesonide (Pulmicort Flexhaler), 2 PUFFS INH Q12H Fluticasone/Salmeterol (Fluticasone-Salmeterol 55-14), 1 PUFFS INH Q12H Ipratropium/Albuterol Sulfate (Duoneb 2.5-0.5 Mg/3 Ml Soln), 1 VIAL NEB Q12H Loratadine (Loratadine), 1 TAB PO DAILY Scheduled PRN Albuterol Sulfate (Ventolin Hfa), 2 PUFFS INH Q4HPRN PRN for wheezing ONDANSETRON ODT 4mg tablet (Ondansetron Odt), 1 TAB PO Q6H PRN PRN for nausea/vomiting albuterol inhaler (Pro-Air Inhaler), 2 PUFFS IH Q4H PRN for SOB or wheezing, (Reported) Discontinued Medications Albuterol Sulfate (Proventil Hfa), 2 PUFFS INH Q4H Discontinued Reason: patient no longer taking Durable Medical Equipment Nebulizer and Compressor (Compressor Nebulizer System), EA NEB for SOB or wheezing, (DME) Past Medical History Past Medical History: Asthma, Bronchitis, Hepatitis C, Kidney Stones, UTI Past Surgical History: noncontributory Other Past Family History: Noncontributory Smoking: Cigarettes Alcohol Use: Rarely Drug Use: methamphetamine, heroin Lives with: S/O Lives In: Home Occupation: unemployed Review of Systems ROS 10 point review of systems was performed and unless noted above in HPI is negative for acute process/complaint. Physical Exam Physical Exam Vital Signs: Temperature: 97.6, Source: Temporal, Heart Rate: 109, Respiratory Rate: 20, BP: 157/83, Pulse Oximetry: 98, Weight: 78.000 Physical Exam GENERAL: Awake, alert, oriented, GCS 15, no apparent distress, non-toxic appearing, answers questions, follows commands appropriately. Examined in bed 4. HEENT: Atraumatic, normocephalic, pupils equal, extraocular muscles intact, sclerae anicteric, mucus membranes moist, oropharynx is clear, no stridor. NECK: supple, full active range of motion, trachea midline, no thyromegaly, no lymphadenopathy, no JVD. CARDIOVASCULAR: Tachycardic and regular rate/rhythm, no murmurs/gallops/rubs, Pulses are 2+ in all extremities and symmetric. Capillary refill less than 2 seconds. PULMONARY: Tachypneic and labored, decreased air movement , mild respiratory distress, speaking in short sentences, bilateral wheezing, no ronchi, no rales, some accessory muscle use. GASTROINTESTINAL: Soft, non-tender, non-distended, normal active bowel sounds, no organomegaly, no pulsatile masses, no CVA tenderness. NEUROLOGIC: Lucid with normal mental status. Normal facial symmetry. Moves all extremities symmetrically and with purpose. No truncal ataxia. Speech is fluid without evidence of dysarthria or aphasia, no focal deficits appreciated. MUSCULOSKELETAL: There is full range of motion of all extremities. There is no joint pain or joint swelling or joint erythema. There is no muscle pain or tenderness or swelling. EXTREMITIES: warm, well-perfused, no cyanosis, no clubbing, no edema, no acute deformities. Skin: warm, dry, no rashes or lesions, no jaundice, no petechiae orpurpura. No ecchymosis. PSYCHIATRIC: Normal affect, normal insight, normal concentration. Focused exam: [] Progress Results/Orders Results/Orders Orders - FERNANDEZ ASTORGA DO Covid19 Binax Poc Result Entry (06/15/25 14:40) Influenza Type A&B Rapid Test (06/15/25 14:40) Chest,Single View (06/15/25 ) Completed Orders - FERNANDEZ ASTORGA DO Prednisone Tablet (Prednisone Tablet) (06/15/25 14:25) Albuterol 2.5mg/3ml Nebule (Proventil 2. (06/15/25 14:25) Chest,Single View (06/15/25 ) Medications Received in ER Medications (Trade) Dose Ordered Sig/Lee Route PRN Reason Start Time Stop Time Status Last Admin Dose Admin (Proventil 2.5 MG/3ML nebule) 2.5 mg ONCE ONCE NEB 06/15/25 14:05 06/15/25 14:07 DC 06/15/25 14:15 2.5 MG (predniSONE tablet) 60 mg ONCE ONCE PO 06/15/25 14:25 06/15/25 14:26 DC 06/15/25 14:56 60 MG (Proventil 2.5 MG/3ML nebule) 2.5 mg ONCE ONCE NEB 06/15/25 14:25 06/15/25 14:28 DC 06/15/25 14:31 2.5 MG Vital Signs 06/15/25 06/15/25 06/15/25 06/15/25 14:01 14:09 14:16 14:23 Temp 97.6 Pulse 133 109 109 Resp 26 26 22 20 B/P (MAP) 157/83 Pulse Ox 88 98 O2 Delivery Room Air* Room Air* O2 Flow Rate 0 0 FiO2 21 21 06/15/25 06/15/25 14:32 14:37 Pulse 108 109 Resp 19 20 Pulse Ox 98 O2 Delivery Room Air* Room Air* O2 Flow Rate 0 0 FiO2 21 21 Medical Decision Making Additional information obtaine: N/A Findings Facility Status: ED Holds, RME process The plan was discussed with the patient, who demonstrates clear understanding of the plan and is in agreement with the plan unless otherwise noted in the chart. All questions have been answered, all concerns were addressed unless otherwise documented. I was available throughout their ED stay for frequent reassessment and questions. Differential Diagnoses (considered and possible or likely): [Asthma exacerbation, idiopathic versus COVID versus influenza, less likely bacterial pneumonia, upper respiratory infection with the top of the viruses had also been considered.] ??Differential Diagnoses (considered and unlikely, not requiring evaluation currently): [Unlikely CHF or ACS] MDM Data Please see HPI for the following: Independent Historians and external Records Review. Historian: [Patient] Independent Historians: ?[None] Medication Management: [Reviewed medication list] Social History and determinants: [Reviewed] Please see the body of the note for the following: Any independent interpretations of ECG, imaging studies. All vitals signs/haemodynamics, ordered tests were independently reviewed and interpreted by myself. Nursing triage complaint and vitals reviewed, additional nursing notes were reviewed as available and I agree unless otherwise noted or documented in contradiction in the chart Vital Signs: Independently reviewed Labs: Independently interpreted Imaging: Independently interpreted Old Medical Records: Independently reviewed, see HPI for relevant summary and information Pulse Oximetry: [98%] interpreted as [normal on room air] by me Additionally notably showing: [Initially tachycardic, most likely related to administration of albuterol while in examined in the patient. On my independent interpretation, chest x-ray is clear, no focal infiltrates, midline trachea, normal cardiac silhouette.] Tests considered but not ordered include: [Hematologic workup has been considerably the patient declined] Social Determinants of Health Impact: Patient was evaluated in [facility], [facility] [place] to healthcare due to below par ratio of patient to medical providers. [] Comorbid Conditions Impacting Present Evaluation and Care/Treatment: [Known history of asthma with a history of intubation] Management Discussions with other Healthcare Providers: [None] Treatment and Disposition Medication Management (Given or considered): [Steroids and breathing treatment]. See EMR for details Consideration for Hospitalization/Escalation/Deescalation of Care: Admission for observation has been considered, [however the patient is able to tolerate p.o., their symptoms are controlled, they are able to rely on oral medications, and their chief complaint/diagnosis can be managed on outpatient basis.] ?ED Course:?[Date: Jun 15, 2025 Time: 15:06 patient is not willing to wait for formal read of chest x-ray or COVID/influenza swab. He is feeling markedly better, her wheezing had resolved, she desires to go home. ] ?Shared decision making:?[Patient is hemodynamically stable for discharge home with follow with their primary care provider. [ ] Specific and cautious return precautions provided and discussed with full understanding. Any incidental findings were also discussed and follow up recommendations given. [] All questions answered. Patient/family were able to verbalize back return precautions. Patient/family agree to plan. Copies of imaging and laboratory studies were provided.] Code status:?FULL Please see the full Electronic Medical Record for full details of nursing documentation, medications list, other records of complete past medical history and conditions, vital signs, laboratory studies, and any radiologic study interpretations by radiologists. Portions of this note were completed using [employer] dictation software and as a result there may exist minor errors in spelling. I have reviewed elements of past family and social history and agree as included in note. Differential Diagnosis See body of main note for differential diagnosis Departure Disposition: HOME / SELF CARE / HOMELESS Impression: Primary Impression: Asthma exacerbation Condition: Improved Discharge Instructions: Asthma, Adult, [id number] Referrals: NO PRIMARY CARE PROVIDER (PCP) Prescriptions Methylprednisolone (Medrol Dosepak) 4 Mg Tab.ds.pk 0 PO UD, #21 TAB 0 Refills take 6 Pills Day 1, 5 Pills Day 2, 4 Pills Day 3, 3 Pills Day 4, 2 Pills Day 5 and 1 pill Day 6 Prov: FERNANDEZ ASTORGA DO 06/15/25 Ipratropium/Albuterol Sulfate (Duoneb 2.5-0.5 Mg/3 Ml Soln) 0.5 Mg-3 Mg (2.5 Mg Base)/3 Ml Ampul.neb 1 VIAL NEB Q12H for 30 Days, #180 ML 0 Refills Prov: FERNANDEZ ASTORGA DO 06/15/25 Albuterol Sulfate (Ventolin Hfa) 90 Mcg Hfa.aer.ad 2 PUFFS INH Q4HPRN PRN for wheezing for 30 Days, #18 GM 0 Refills Prov: FERNANDEZ ASTORGA DO 06/15/25 Education Educated: Patient Educated regarding: diagnosis, treatment, prognosis, need for follow up Signature Scribe Signature: No scribe Attestation: Date: Jun 15, 2025 Time: 15:08 This note accurately reflects clinical decisions, work performed by myself, DO RIZWAN Montesinos NICHOLAS M DO Jun 15, 2025 15:08
--- NOTE | 2025-06-15 15:11 | RADIOLOGY REPORT ---
CHEST RADIOGRAPH Indication: Shortness a breath Technique: Single frontal view of the chest was obtained COMPARISON: DI CHEST,TWO VIEWS on DOS: 12/01/24, DI CHEST,SINGLE VIEW on DOS: 11/14/24, DI CHEST,SINGLE VIEW on DOS: 09/19/24, DI CHEST,SINGLE VIEW on DOS: 11/03/23, DI CHEST,SINGLE VIEW on DOS: 10/15/23 FINDINGS: Lines and Tubes: None Lungs: Clear Pleura: No effusion. No pneumothorax. Cardiomediastinal contours: Unremarkable Bones: Unremarkable IMPRESSION: No acute disease.
[2025-06-15 15:25] LABS: INFLUENZA TYPE A ANTIGEN RAPID NEGATIVE (Negative); INFLUENZA TYPE B ANTIGEN RAPID NEGATIVE (Negative)
--- NOTE | 2025-06-15 15:55 | ELECTROCARDIOGRAPH REPORT ---
[facility] Test Date: 2025-06-15 Test Time: 14:10:11 Pat Name: JANNETH VO Department: EMERGENCY ROOM Patient ID: [facility]-[id number] Room: Gender: F Beader: LALI : 1985 Requested By: FERNANDEZ ASTORGA Order Number: [id number] Reading MD: Dr. Darien Morocho Measurements Intervals [place] Rate: 122 P: 92 TX: 151 QRS: 82 QRSD: 67 T: 46 QT: 297 QTc: 423 Interpretive Statements Sinus tachycardia Consider right atrial enlargement Borderline repolarization abnormality Artifact in lead(s) I,II,III,aVR,aVL,aVF,V3,V4,V5,V6 Electronically Signed On 06-16-2025 18:48:[address] Darien Morocho Please click the below link to view image of tracing.
== END 2025-06-15 15:09 | disposition home or self-care (01) ==
LOC: ER 13:55
DX: J45.901 Unspecified asthma with (acute) exacerbation (principal); F11.90 Opioid use, unspecified, uncomplicated; F17.210 Nicotine dependence, cigarettes, uncomplicated; F15.90 Other stimulant use, unspecified, uncomplicated; Z86.19 Personal history of other infectious and parasitic diseases; Z87.442 Personal history of urinary calculi; Z88.1 Allergy status to other antibiotic agents; Z79.899 Other long term (current) drug therapy; Z56.0 Unemployment, unspecified; Z87.440 Personal history of urinary (tract) infections; Z20.822 Contact with and (suspected) exposure to COVID-19
CPT/HCPCS: 36415; 71045; 87804; 87811; 93005; 94640; 99285; J7512; 94760